=== PATIENT | female | born 1995 | race Hispanic/Latino ===

== ENCOUNTER → 2020-03-24 13:44 | Outpatient (CLI) | payer OTHER, SELFPAY ==
[2020-03-24 14:58] LABS: Alanine Aminotransferase 20 IU/L (<35); Albumin 4.6 g/dL (3.5-5.0); Albumin Globulin Ratio 1.6 (1.0-2.8); Alkaline Phosphatase 77 U/L (38-126); Aspartate Aminotransferase 29 IU/L (14-36); BUN Creatinine Ratio 16.4 (6-22); Bilirubin Total 0.5 mg/dL (0.2-1.3); Blood Urea Nitrogen 11 mg/dL (7-17); Calcium 9.9 mg/dL (8.4-10.2); Carbon Dioxide 28 mmol/L (22-32); Chloride 102 mmol/L (98-107); Estimated Glomerular Filt Rate > 60.0 mL/min (>60); Globulin 2.9 g/dL (1.7-4.1); Glucose 116 mg/dL (70-100); HEMOLYSIS < 15 (0-50); Potassium 4.3 mmol/L (3.4-5.1); Sodium 138 mmol/L (137-145); Total Protein 7.5 g/dL (6.3-8.2)
== END ==
PROVIDERS: PCP Registered Nurse; Referring Provider Registered Nurse; Visit Provider Registered Nurse
DX: B37.2 Candidiasis of skin and nail (principal)
CPT/HCPCS: 36415; 80053

== ENCOUNTER → 2020-12-21 15:56 | Outpatient (CLI) | payer OTHER, SELFPAY | PROVIDERS: PCP Registered Nurse; Referring Provider Registered Nurse; Visit Provider Registered Nurse | DX: M25.551 Pain in right hip (principal); M25.552 Pain in left hip; Z53.9 Procedure and treatment not carried out, unspecified reason ==

== ENCOUNTER → 2021-01-30 16:29 | Outpatient (CLI) | payer OTHER, SELFPAY ==
[2021-01-30 17:20] LABS: Add Manual Diff / Slide Review NO; Basophils Absolute Auto 0 /uL (0-100); Basophils Percent Auto 0.4 % (0-2); Eosinophils Absolute Auto 100 /uL (0-450); Eosinophils Percent Auto 0.8 % (2-4); Hematocrit 36.4 % (36-46); Hemoglobin 11.9 g/dL (12.0-16.0); Lymphocytes Absolute Auto 3100 /uL (1100-4500); Lymphocytes Percent Auto 24.8 % (25-40); Mean Corpuscular HGB Conc 32.8 % (30-36); Mean Corpuscular Hemoglobin 29.2 PG (26-34); Monocytes Absolute Auto 700 /uL (0-900); Monocytes Percent Auto 5.3 % (3-14); Neutrophils Absolute Auto 8600 /uL (1500-7000); Neutrophils Percent Auto 68.7 % (50-75); Platelet Count 319 X10^3/uL (150-400); Red Blood Cell Count 4.09 X10^6/uL (4.0-5.2); Red Cell Distribution Width 14.3 % (11.6-14.8); White Blood Cell Count 12.5 X10^3/uL (4.5-11.0)
[2021-01-30 18:16] LABS: Appearance Urine UA CLEAR; Bilirubin Urine UA NEGATIVE (NEGATIVE); Color Urine UA YELLOW; Glucose Urine UA NEGATIVE (Negative); Ketones Urine UA NEGATIVE (NEGATIVE); Leukocyte Esterase Urine UA NEGATIVE (NEGATIVE); Nitrite Urine UA NEGATIVE (Negative); Occult Blood Urine UA TRACE-INTACT (Negative); Protein Urine UA NEGATIVE (Negative); Urobilinogen Urine UA 0.2 E.U./dL (0.2)
[2021-01-30 18:20] LABS: pH Urine UA 6.5 (4.5-8.0)
[2021-01-30 18:33] LABS: Free T4, Direct Thyroxine 0.89 ng/dL (0.78-2.19)
[2021-01-30 18:47] LABS: Thyroid Stimulating Hormone 1.75 uIU/mL (0.47-4.68)
[2021-01-30 19:29] LABS: Hepatitis B Surface Antigen NEGATIVE s/c (NEGATIVE); Rubella Antibody IgG 1.3 IU/mL (>15)
[2021-01-30 19:52] LABS: HIV 1 & 2 Ab/Ag 4th Gen Combo NEGATIVE (NEGATIVE); Hep C Virus Ab w/Reflex Quant NEGATIVE s/c (NEGATIVE)
[2021-01-31 08:42] LABS: RPR Screen Non Reactive (Non Reactive)
[2021-01-31 12:42] LABS: Varicella IgG Antibody 741 index (Immune >165)
== END ==
PROVIDERS: PCP Registered Nurse; Referring Provider Family Medicine; Visit Provider Family Medicine
DX: Z34.01 Encounter for supervision of normal first pregnancy, first trimester (principal)
CPT/HCPCS: 36415; 80055; 81003; 84439; 84443; 86787; 86803; 86850; 86900; 86901; 87086; 87389

== ENCOUNTER → 2021-02-20 07:50 | Outpatient (CLI) | payer OTHER, SELFPAY ==
--- NOTE | 2021-02-20 07:51 | DI.ECHO.S_ITS ---
[facility]---------+ [facility] +---------+ : : [address] : : : : [place] : : : : [id number] : : : : Phone: [phone]---------+ Echocardiogram Report + + :Name: JOSIE CAMPBELL Study Date: 02/20/2021 Height: 64 in : :[facility] ReadingLocation: Weight: 190 lb : : Gender: Female BSA: 1.9 m2 : :: 1995 Age: 25 yrs BP: 112/74 mmHg: :Reason For Study: POSSIBLE HISTORY OF MITRAL VALVE PROLAPSE : :AND PULMONARY HYPERTENSION : :Ordering Physician: KIANNA, : :FARIDA Performed By: Carlita Sandhu : :Referring: FARIDA HUTCHISON : + + Interpretation Summary The ejection fraction is estimated to be 55-60%. There is trace tricuspid regurgitation. Pulmonary artery pressures cannot be estimated because of the lack of a measurable TR jet velocity but the IVC suggests a CVP of around 3 mmHg. There is no significant valvular heart disease. Procedure: A two-dimensional transthoracic echocardiogram with color flow and Doppler was performed. The study quality was technically adequate. There is no prior echocardiogram noted for this patient. The patient was in sinus rhythm with heart rates between 59-78 bpm during the exam. Left Ventricle: The left ventricle is normal in size and wall thickness. The ejection fraction is estimated to be 55-60%. There are no obvious focal wall motion abnormalities noted but poor endocardial definition reduces the sensitivity for the detection of such. Right Ventricle: The right ventricle is normal in size and function. Atria: The left atrium is mildly dilated. Right atrial size is normal. There is no Doppler evidence for an interatrial shunt. Mitral Valve: The mitral valve is normal in structure and function. There is no evidence of mitral valve prolapse. There is trace mitral regurgitation. Aortic Valve: The aortic valve opens well. There is no aortic valve stenosis. No aortic regurgitation is present. Tricuspid Valve: The tricuspid valve is normal in structure and function. There is trace tricuspid regurgitation. Pulmonary artery pressures cannot be estimated because of the lack of a measurable TR jet velocity but the IVC suggests a CVP of around 3 mmHg. Pulmonic Valve: The pulmonic valve leaflets are thin and pliable; valve motion is normal. There is trace pulmonic regurgitation. Great Vessels: The aortic root is normal size. The dimensions of the ascending aorta are normal. The IVC is of normal diameter and collapses greater than 50% with a sniff. This suggests a low right atrial pressure of 3 mm Hg. Pericardium/ Pleura There is no pericardial effusion. There is no pleural effusion. MMode/2D Measurements & Calculations LVIDd: 4.8 cm LVOT diam: 2.1 cm LVIDs: 2.9 cm Ao root diam: 2.4 cm FS: 39.6 % asc Aorta Diam: 2.3 cm EPSS: 0.23 cm Ao Arch Diam (Prox Trans): 2.4 cm IVSd: 0.76 cm LVPWd: 0.72 cm LV mae. diameter/BSA (cm/m^2): 2.5 LV sys. diameter/BSA (cm/m^2): 1.5 LA A2 area: 21.0 cm2 RA long axis: 4.9 cm LA A4 area: 21.1 cm2 RA area: 16.1 cm2 LA length (vol): 5.5 cm RA vol: 44.7 ml LA vol: 68.5 ml RA : 23.4 ml/m2 LA vol index: 35.8 ml/m2 IVC diam: 1.6 cm RVD1 (basal): 3.9 cm TAPSE: 2.7 cm Doppler Measurements & Calculations Ao V2 max: 157.5 cm/sec LVOT Max J Luis: 106.8 cm/sec Ao V2 mean: 109.9 cm/sec LV V1 max P.6 mmHg Ao max P.9 mmHg LV V1 VTI: 21.4 cm Ao mean P.4 mmHg MAY(I,D): 2.2 cm2 Ao V2 VTI: 33.1 cm MAY(V,D): 2.3 cm2 sev ratio: 0.65 MAY indexed to BSA (cm^2/m^2): 1.2 MV E max j luis: 91.7 cm/sec PA V2 max: 115.1 cm/sec MV A max j luis: 60.1 cm/sec PA V2 mean: 83.7 cm/sec MV E/A: 1.5 PA mean P.1 mmHg Med Peak E' J Luis: 12.5 cm/sec PA pr(Accel): 32.8 mmHg E/E' med: 7.3 Lat Peak E' J Luis: 16.1 cm/sec E/E' lat: 5.7 E/e' average: 6.5 MV dec time: 0.22 sec [facility] 72.8 ml Reading Physician:03:45 PM
== END ==
PROVIDERS: PCP Registered Nurse; Referring Provider Family Medicine; Visit Provider Family Medicine
DX: I34.1 Nonrheumatic mitral (valve) prolapse (principal); I27.20 Pulmonary hypertension, unspecified
CPT/HCPCS: 93306

== ENCOUNTER → 2021-04-04 11:44 | Outpatient (CLI) | payer OTHER, SELFPAY ==
[2021-04-06 20:07] LABS: AFP, Serum 57.1 ng/mL (.); Estriol, Free 1.46 ng/mL (.); Inhibin A, Dimeric 229.59 pg/mL (.); Inhibin A, MoM 1.75 (.); Maternal Ethnicity Other (.); Maternal Weight 202 lbs (.); Number of Fetuses No (.); OSBR Risk 1 IN 2393 (.); Results Report (.); Test Results *Screen Negative* (.); hCG, MoM 0.94 (.); hCG, Serum 22023 mIU/mL (.)
== END ==
PROVIDERS: PCP Registered Nurse; Referring Provider Family Medicine; Visit Provider Family Medicine
DX: Z34.90 Encounter for supervision of normal pregnancy, unspecified, unspecified trimester (principal); Z3A.18 18 weeks gestation of pregnancy
CPT/HCPCS: 36415; 82105; 82677; 84702; 86336

== ENCOUNTER → 2021-04-20 11:50 | Outpatient (CLI) | payer OTHER, SELFPAY ==
--- NOTE | 2021-04-20 11:51 | DI.US.S_ITS ---
PROCEDURE: US OB >= 14 WEEKS FETUS INDICATIONS: ANATOMY OUTSIDE/PRIOR DATING DATA: First dating scan (date and location): 04/20/2021 . Estimated date of delivery (JOSE) from first dating scan: 08/31/2021 . TECHNIQUE: Real-time scanning was performed of the fetus, with image documentation and biometric measurements. Endovaginal scanning: No COMPARISON: None. FINDINGS: General: A single living intrauterine gestation is present. Presentation: Vertex. Placenta: Placental position is right fundal , without previa. Amniotic fluid index: 15.3 cm, normal range is 5-24 cm. heart rate: 141 beats per minute. Maternal cervical canal: 3.5 cm long. Normal lower limit is 2.5 cm. biometrics: Biparietal diameter: 20 weeks 6 days Head circumference: 20 weeks 2 days Abdominal circumference: 20 weeks 5 days Femur length: 21 weeks 6 days Estimated gestational age from initial scan: not applicable. Composite gestational age from present scan: 21 weeks Estimated weight and percentile: N/a Measurement variability for biometric dating: +/- 7 days from 14 weeks to 15 weeks 6 days gestation, +/- 10 days from 16 weeks to 21 weeks 6 days gestation, +/- 2 weeks from 22 weeks to 27 weeks 6 days gestation, +/- 3 weeks for 28 weeks gestation or later. weight reference: 4500 g or EFW >90/95% is considered macrosomia or large for gestational age. EFW <10% is small for gestational age. EFW 5% or less is considered intra-uterine growth restriction. Anatomic survey: Neuro: Ventricles are non-dilated at less than 10 mm. Cisterna magna is normal at 3-11 mm. Cerebellum is normal in size and morphology. Nuchal skin fold: Normal at less than 6 mm between 14-21 weeks gestational age. Face: Nose and lips, facial profile are normal. Spine: No evidence for spina bifida. Heart: 4-chambered heart is present, with normal ventricular outflow tracts. Diaphragm: Diaphragm is intact. Stomach: Left-sided stomach is present. Kidneys: No hydronephrosis. Normal is less than 5 mm in 2nd trimester, less than 7 mm in 3rd trimester. Cord: 3-vessel cord has orthotopic insertion. Bladder: Normal in size. Extremities: All 4 extremities identified. IMPRESSION: 1. 21 week 0 day single living IUP. 2. Normal anatomic survey. Dictated by: Felix PARHAM Interpreted: Baldev Valverde MD on 04/20/2021 at 13:11 Transcribed by: ESTEBAN on 04/20/2021 at 13:21 Approved by: Baldev Valverde M.D. on 04/20/2021 at 15:11
== END ==
PROVIDERS: PCP Registered Nurse; Referring Provider Family Medicine; Visit Provider Family Medicine
DX: Z36.89 Encounter for other specified antenatal screening (principal); Z3A.21 21 weeks gestation of pregnancy
CPT/HCPCS: 76811

== ENCOUNTER → 2021-06-08 08:12 | Outpatient (CLI) | payer OTHER, SELFPAY ==
[2021-06-08 10:03] LABS: Add Manual Diff / Slide Review NO; Basophils Absolute Auto 0 /uL (0-100); Basophils Percent Auto 0.2 % (0-2); Eosinophils Absolute Auto 100 /uL (0-450); Eosinophils Percent Auto 0.5 % (2-4); Hematocrit 35.2 % (36-46); Hemoglobin 11.5 g/dL (12.0-16.0); Lymphocytes Absolute Auto 2100 /uL (1100-4500); Lymphocytes Percent Auto 17.1 % (25-40); Mean Corpuscular HGB Conc 32.8 % (30-36); Mean Corpuscular Hemoglobin 29.6 PG (26-34); Mean Corpuscular Volume 90.2 fL (80-100); Monocytes Absolute Auto 500 /uL (0-900); Neutrophils Absolute Auto 9400 /uL (1500-7000); Neutrophils Percent Auto 78.2 % (50-75); Platelet Count 348 X10^3/uL (150-400); Red Cell Distribution Width 13.8 % (11.6-14.8); White Blood Cell Count 12.1 X10^3/uL (4.5-11.0)
[2021-06-08 10:21] LABS: GTT (PREG) 1 Hour PP 50gm Dose 127 mg/dL (76-139)
== END ==
PROVIDERS: PCP Registered Nurse; Referring Provider Family Medicine; Visit Provider Family Medicine
DX: Z34.90 Encounter for supervision of normal pregnancy, unspecified, unspecified trimester (principal)
CPT/HCPCS: 36415; 82950; 85025

== ENCOUNTER → 2021-06-29 16:19 | Outpatient (CLI) | payer OTHER, SELFPAY ==
[2021-06-29 17:04] LABS: COVID19 -Nasal RAPID Negative (Negative)
== END ==
PROVIDERS: PCP Registered Nurse; Visit Provider Physician Assistant
DX: Z20.822 Contact with and (suspected) exposure to COVID-19 (principal)
CPT/HCPCS: 87635

== ENCOUNTER → 2021-07-10 17:12 | Outpatient (CLI) | payer OTHER, SELFPAY ==
[2021-07-10 18:12] LABS: Appearance Urine UA CLEAR; Bilirubin Urine UA NEGATIVE (NEGATIVE); Color Urine UA YELLOW; Glucose Urine UA NEGATIVE (Negative); Ketones Urine UA NEGATIVE (NEGATIVE); Leukocyte Esterase Urine UA TRACE (NEGATIVE); Nitrite Urine UA NEGATIVE (Negative); Occult Blood Urine UA NEGATIVE (Negative); Protein Urine UA NEGATIVE (Negative); Specific Gravity Urine UA <=1.005 (1.000-1.035); Urobilinogen Urine UA 0.2 E.U./dL (0.2)
[2021-07-10 18:25] LABS: Bacteria Urine Many (>30); Culture Indicated Urine Specimen Cultured; RBC Urine 0-1/HPF (0-5/HPF); Squamous Epithelial Cell Urine 1-5 /HPF (0-5/HPF); WBC Urine 5-10/HPF (0-5/HPF)
== END ==
PROVIDERS: PCP Registered Nurse; Referring Provider Family Medicine; Visit Provider Family Medicine
DX: Z34.90 Encounter for supervision of normal pregnancy, unspecified, unspecified trimester (principal); R82.998 Other abnormal findings in urine
CPT/HCPCS: 81001; 87086

== ENCOUNTER → 2021-07-12 15:11 | Outpatient (CLI) | payer OTHER, SELFPAY ==
[2021-07-12 15:57] LABS: Alanine Aminotransferase 86 IU/L (<35); Albumin 3.6 g/dL (3.5-5.0); Albumin Globulin Ratio 1.2 (1.0-2.8); Alkaline Phosphatase 256 U/L (38-126); Aspartate Aminotransferase 59 IU/L (14-36); BUN Creatinine Ratio 12.2 (6-22); Bilirubin Total 0.5 mg/dL (0.2-1.3); Blood Urea Nitrogen 6 mg/dL (7-17); Calcium 9.6 mg/dL (8.4-10.2); Carbon Dioxide 25 mmol/L (22-32); Chloride 103 mmol/L (98-107); Estimated Glomerular Filt Rate > 60.0 mL/min (>60); Glucose 84 mg/dL (70-100); HEMOLYSIS < 15 (0-50); Sodium 137 mmol/L (137-145); Total Protein 6.6 g/dL (6.3-8.2)
[2021-07-13 09:08] LABS: Bile Acids 48.1 umol/L (0.0-10.0)
== END ==
PROVIDERS: PCP Registered Nurse; Referring Provider Family Medicine; Visit Provider Family Medicine
DX: Z34.90 Encounter for supervision of normal pregnancy, unspecified, unspecified trimester (principal); L29.9 Pruritus, unspecified
CPT/HCPCS: 36415; 80053; 82239

== ENCOUNTER 2021-07-16 14:24 | Outpatient (CLI) | payer OTHER, SELFPAY ==
--- NOTE | 2021-07-16 14:44 | DI.US.S_ITS ---
PROCEDURE: US OB LIMITED INDICATIONS: GROWTH SCAN, TITI, BPP FOR CHOLESTASIS OF OUTSIDE/PRIOR DATING DATA: Last menstrual period (LMP): Not available. LMP-based estimated date of delivery (JOSE): Not available. First dating scan (date and location): 04/30/2021. Estimated date of delivery (JOSE) from first dating scan: 08/31/2021. TECHNIQUE: Real-time scanning was performed of the fetus, with image documentation and biometric measurements. Biophysical profile was also obtained. Endovaginal scanning: Not performed COMPARISON: [facility], OB >= 14 WEEKS FETUS, 04/20/2021, 12:18. FINDINGS: General: A single living intrauterine gestation is present. Presentation: Cephalic. Placenta: Placental position is right fundal , without previa. Amniotic fluid index: 9.2 cm, normal range is 5-24 cm; largest pocket 3.6 cm. heart rate: 143 beats per minute. Maternal cervical canal: 3.9 cm long. Normal lower limit is 2.5 cm. biometrics: Biparietal diameter: 34 weeks 1 day Head circumference: 33 weeks 6 days Abdominal circumference: 32 weeks 4 days Femur length: 33 weeks 0 day Estimated gestational age from initial scan: 33 weeks 3 days. Composite gestational age from present scan: 33 weeks 3 days Estimated weight and percentile: 2089 gm; 28% for gestation age Measurement variability for biometric dating: +/- 7 days from 14 weeks to 15 weeks 6 days gestation, +/- 10 days from 16 weeks to 21 weeks 6 days gestation, +/- 2 weeks from 22 weeks to 27 weeks 6 days gestation, +/- 3 weeks for 28 weeks gestation or later. weight reference: 4500 g or EFW >90/95% is considered macrosomia or large for gestational age. EFW <10% is small for gestational age. EFW 5% or less is considered intra-uterine growth restriction. Biophysical profile: Tone: 2 points. Movement: 2 points. Respiration: 2 points. Largest pocket of fluid: 2 points. Umbilical artery Doppler: Not performed IMPRESSION: 1. A single living intrauterine gestation with appropriate interval growth. weight at the 28th percentile. 2. Normal biophysical profile (8 out of 8). 3. TITI 9.2 cm. Dictated by: Laith Hewitt M.D. on 07/16/2021 at 16:27 Approved by: Laith Hewitt M.D. on 07/16/2021 at 16:31
--- NOTE | 2021-07-16 15:16 | P.TNLD_ITS ---
Visit Information Visit Information Date of evaluation: 07/16/21 Primary OB Provider: Belén Love Reason for Evaluation: Yes non-stress test non-stress test reason: other Comments/Additional reasons for admission: 26yo at 32w4d here for NST due to cholestasis of . Pt reports having a very itchy abdomen, hands, and feet for the past approximately week. Bile acids and liver enzymes are elevated. She is feeling her baby move regularly. [facility] Medical History (Updated 07/16/21 @ 15:25 by Belén Love MD) Dermatitis (~08/2019) Eczema (~08/2019) Left hip pain (~2004) Left wrist fracture (~2010) Mitral valve prolapse (~2011) Pulmonary hypertension (~2011) Right hip pain (~2004) Scoliosis (~2008) Surgical History (Updated 01/25/21 @ 15:38 by Margie Cornejo RN) History of tonsillectomy and adenoidectomy (~2002) Family History (Updated 01/25/21 @ 15:54 by Margie Cornejo RN) Mother Cellulitis and abscess of leg Father Sleep apnea Hearing loss Asthma Grandmother Diabetes mellitus Cirrhosis of liver Grandfather Family estrangement Grandmother No problems noted. Grandfather Diabetes mellitus Social History marital status: number of children: 0 household members: spouse and family (Her Brother, his two kids & her parents are moving in with her next week. ) lives independently: Yes caregiver/support person: No housing: house pets and animals: Yes (2 dogs: safe & aware. 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.) current occupational exposures/hazards: No raphael/catholic: Baptist special raphael needs: No seatbelt use: always working smoke detector in home: Yes fire extinguisher in home: No carbon monox detector in home: Yes firearms in home: Yes firearms unloaded and locked: Yes do you feel safe at home: Yes Smoking Status: Never smoker second hand exposure: No alcohol intake: former (1 drink per month.) substance use type: does not use during the past year weight has: remained stable well-balanced diet: daily or most days daily servings fruits/ve-4 caffeine: No Type(s) of exercise: regular exercise (Sometimes Nuria classes. ) and running (Total 9 miles a week. Did half-marathon recently.) frequency: 3-4 times per week Evaluation Evaluation Baseline heart rate: 140 Variability: Moderate (11-25) monitor accelerations: Present Monitor Decelerations: Absent Category of Tracing: Reactive Diagnosis, Plan/Disposition Final Diagnosis (1) Cholestasis during in third trimester: Status: Acute Plan/Disposition Plan: 26yo at 32w4d here for NST due to cholestasis of . BPP 8/8 with TITI 9.2. Appropriate growth on u/s as well. NST reactive. Continue twice weekly NST with weekly BPP/TITI. MFM referral placed today. OB Disposition: home
== END 2021-07-16 15:30 | disposition home or self-care (01) ==
LOC: LABOR 15:00 → OB 07-17 11:17
PROVIDERS: PCP Registered Nurse; Referring Provider Family Medicine; Visit Provider Family Medicine
DX: O26.613 Liver and biliary tract disorders in pregnancy, third trimester (principal); K83.1 Obstruction of bile duct; Z3A.32 32 weeks gestation of pregnancy
CPT/HCPCS: 59025; 76815; 76819; G0378; G0379

== ENCOUNTER 2021-07-20 14:54 | Outpatient (CLI) | payer OTHER, SELFPAY ==
--- NOTE | 2021-07-20 15:37 | P.TNLD_ITS ---
Visit Information Visit Information Date of evaluation: 07/20/21 Primary OB Provider: Belén Love Reason for Evaluation: Yes non-stress test non-stress test reason: other (cho lestasis of ) Comments/Additional reasons for admission: Pt is a 26yo at 33w1d here for NST due to cholestasis of . She is feeling her baby move regularly. She denies any vaginal bleeding, LOF, or contractions. [facility] Medical History (Updated 07/16/21 @ 15:25 by Belén Love MD) Dermatitis (~08/2019) Eczema (~08/2019) Left hip pain (~2004) Left wrist fracture (~2010) Mitral valve prolapse (~2011) Pulmonary hypertension (~2011) Right hip pain (~2004) Scoliosis (~2008) Surgical History (Updated 01/25/21 @ 15:38 by Margie Cornejo RN) History of tonsillectomy and adenoidectomy (~2002) Family History (Updated 01/25/21 @ 15:54 by Margie Cornejo RN) Mother Cellulitis and abscess of leg Father Sleep apnea Hearing loss Asthma Grandmother Diabetes mellitus Cirrhosis of liver Grandfather Family estrangement Grandmother No problems noted. Grandfather Diabetes mellitus Social History marital status: number of children: 0 household members: spouse and family (Her Brother, his two kids & her parents are moving in with her next week. ) lives independently: Yes caregiver/support person: No housing: house pets and animals: Yes (2 dogs: safe & aware. 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.) current occupational exposures/hazards: No raphael/catholic: [employer] special raphael needs: No seatbelt use: always working smoke detector in home: Yes fire extinguisher in home: No carbon monox detector in home: Yes firearms in home: Yes firearms unloaded and locked: Yes do you feel safe at home: Yes Smoking Status: Never smoker second hand exposure: No alcohol intake: former (1 drink per month.) substance use type: does not use during the past year weight has: remained stable well-balanced diet: daily or most days daily servings fruits/ve-4 caffeine: No Type(s) of exercise: regular exercise (Sometimes Nuria classes. ) and running ( Total 9 miles a week. Did half-marathon recently.) frequency: 3-4 times per week Objective Labs Result Diagrams: 07/20/21 15:22 Evaluation Evaluation Baseline heart rate: 140 Variability: Moderate (11-25) monitor accelerations: Present Monitor Decelerations: Absent Category of Tracing: Reactive Diagnosis, Plan/Disposition Final Diagnosis (1) Cholestasis during in third trimester: Status: Acute Plan/Disposition Plan: Pt is a 26yo at 33w1d here for NST due to cholestasis of . NST reactive. Labs drawn today. Continue twice weekly NST with weekly TITI. Safe to d/c home. OB Disposition: home
[2021-07-20 15:39] LABS: Alanine Aminotransferase 68 IU/L (<35); Albumin 3.5 g/dL (3.5-5.0); Albumin Globulin Ratio 1.1 (1.0-2.8); Alkaline Phosphatase 246 U/L (38-126); Aspartate Aminotransferase 47 IU/L (14-36); BUN Creatinine Ratio 15.2 (6-22); Bilirubin Total 0.4 mg/dL (0.2-1.3); Blood Urea Nitrogen 7 mg/dL (7-17); Calcium 8.8 mg/dL (8.4-10.2); Carbon Dioxide 24 mmol/L (22-32); Chloride 103 mmol/L (98-107); Estimated Glomerular Filt Rate > 60.0 mL/min (>60); Globulin 3.3 g/dL (1.7-4.1); Glucose 114 mg/dL (70-100); HEMOLYSIS < 15 (0-50); Potassium 3.9 mmol/L (3.4-5.1); Sodium 134 mmol/L (137-145); Total Protein 6.8 g/dL (6.3-8.2)
[2021-07-21 12:14] LABS: Bile Acids 9.6 umol/L (0.0-10.0)
== END 2021-07-20 15:42 | disposition home or self-care (01) ==
LOC: OB 07-25 07:10
PROVIDERS: PCP Registered Nurse; Referring Provider Family Medicine; Visit Provider Family Medicine
DX: O26.613 Liver and biliary tract disorders in pregnancy, third trimester (principal); K83.1 Obstruction of bile duct; Z3A.33 33 weeks gestation of pregnancy
CPT/HCPCS: 36415; 59025; 80053; 82239; G0378; G0379

== ENCOUNTER 2021-07-24 13:22 | Outpatient (CLI) | payer OTHER, SELFPAY ==
--- NOTE | 2021-07-24 14:22 | P.TNLD_ITS ---
Visit Information Visit Information Date of evaluation: 07/24/21 Primary OB Provider: Belén Love Reason for Evaluation: Yes non-stress test non-stress test reason: other Comments/Additional reasons for admission: 26yo at 33w6d here for NST due to cholestasis of . Pt is feeling her baby move regularly. No LOF, contractions, or vaginal bleeding. [facility] Medical History (Updated 07/16/21 @ 15:25 by Belén Love MD) Dermatitis (~08/2019) Eczema (~08/2019) Left hip pain (~2004) Left wrist fracture (~2010) Mitral valve prolapse (~2011) Pulmonary hypertension (~2011) Right hip pain (~2004) Scoliosis (~2008) Surgical History (Updated 01/25/21 @ 15:38 by Margie Cornejo RN) History of tonsillectomy and adenoidectomy (~2002) Family History (Updated 01/25/21 @ 15:54 by Margie Cornejo RN) Mother Cellulitis and abscess of leg Father Sleep apnea Hearing loss Asthma Grandmother Diabetes mellitus Cirrhosis of liver Grandfather Family estrangement Grandmother No problems noted. Grandfather Diabetes mellitus Social History marital status: number of children: 0 household members: spouse and family (Her Brother, his two kids & her parents are moving in with her next week. ) lives independently: Yes caregiver/support person: No housing: house pets and animals: Yes (2 dogs: safe & aware. 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.) current occupational exposures/hazards: No raphael/zoroastrianism: Yazdanism special raphael needs: No seatbelt use: always working smoke detector in home: Yes fire extinguisher in home: No carbon monox detector in home: Yes firearms in home: Yes firearms unloaded and locked: Yes do you feel safe at home: Yes Smoking Status: Never smoker second hand exposure: No alcohol intake: former (1 drink per month.) substance use type: does not use during the past year weight has: remained stable well-balanced diet: daily or most days daily servings fruits/ve-4 caffeine: No Type(s) of exercise: regular exercise (Sometimes Nuria classes. ) and running (Total 9 miles a week. Did half-marathon recently.) frequency: 3-4 times per week Evaluation Evaluation Baseline heart rate: 145 Variability: Moderate (11-25) monitor accelerations: Present Monitor Decelerations: Absent Category of Tracing: Reactive Diagnosis, Plan/Disposition Final Diagnosis (1) Cholestasis during in third trimester: Status: Acute Plan/Disposition Plan: 26yo at 33w6d here for NST due to cholestasis of . NST reactive. Pt with u/s with MFM yesterday. Awaiting records for final recommendations. Continue twice weekly NST with weekly TITI for now. Stable for d/c home. OB Disposition: home
== END 2021-07-24 14:15 | disposition home or self-care (01) ==
LOC: OB 07-25 07:12
PROVIDERS: PCP Registered Nurse; Referring Provider Family Medicine; Visit Provider Family Medicine
DX: O26.613 Liver and biliary tract disorders in pregnancy, third trimester (principal); K83.1 Obstruction of bile duct; Z3A.33 33 weeks gestation of pregnancy
CPT/HCPCS: 59025; G0378; G0379

== ENCOUNTER 2021-07-27 15:01 | Outpatient (CLI) | payer OTHER, SELFPAY ==
--- NOTE | 2021-07-27 15:15 | PM.OBTRLD ---
Visit Information Visit Information Date of evaluation: 07/27/21 Primary OB Provider: Belén Love Reason for Evaluation: Yes non-stress test Comments/Additional reasons for admission: 26yo at 34w1d here for NST due to cholestasis of .? Pt is feeling her baby move regularly.? No LOF, contractions, or vaginal bleeding. [facility] Medical History (Updated 07/16/21 @ 15:25 by Belén Love MD) Dermatitis (~08/2019) Eczema (~08/2019) Left hip pain (~2004) Left wrist fracture (~2010) Mitral valve prolapse (~2011) Pulmonary hypertension (~2011) Right hip pain (~2004) Scoliosis (~2008) Surgical History (Updated 01/25/21 @ 15:38 by Margie Cornejo RN) History of tonsillectomy and adenoidectomy (~2002) Family History (Updated 01/25/21 @ 15:54 by Margie Cornejo RN) Mother Cellulitis and abscess of leg Father Sleep apnea Hearing loss Asthma Grandmother Diabetes mellitus Cirrhosis of liver Grandfather Family estrangement Grandmother No problems noted. Grandfather Diabetes mellitus Social History marital status: number of children: 0 household members: spouse and family (Her Brother, his two kids & her parents are moving in with her next week. ) lives independently: Yes caregiver/support person: No housing: house pets and animals: Yes (2 dogs: safe & aware. 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.) current occupational exposures/hazards: No raphael/buddhist: Episcopal special raphael needs: No seatbelt use: always working smoke detector in home: Yes fire extinguisher in home: No carbon monox detector in home: Yes firearms in home: Yes firearms unloaded and locked: Yes do you feel safe at home: Yes Smoking Status: Never smoker second hand exposure: No alcohol intake: former (1 drink per month.) substance use type: does not use during the past year weight has: remained stable well-balanced diet: daily or most days daily servings fruits/ve-4 caffeine: No Type(s) of exercise: regular exercise (Sometimes Nuria classes. ) and running (Total 9 miles a week. Did half-marathon recently.) frequency: 3-4 times per week Evaluation Evaluation Baseline heart rate: 130 Variability: Moderate (11-25) monitor accelerations: Present Monitor Decelerations: Absent Category of Tracing: Reactive Diagnosis, Plan/Disposition Final Diagnosis (1) Cholestasis during in third trimester: Status: Acute Plan/Disposition Plan: 26yo at 34w1d here for NST due to cholestasis of . NST reactive.? Continue twice weekly NST with weekly TITI for now.? Labs completed today, pending at discharge. Stable for d/c home. OB Disposition: home
[2021-07-27 16:37] LABS: Alanine Aminotransferase 84 IU/L (<35); Albumin 3.6 g/dL (3.5-5.0); Albumin Globulin Ratio 1.1 (1.0-2.8); Alkaline Phosphatase 253 U/L (38-126); Aspartate Aminotransferase 59 IU/L (14-36); BUN Creatinine Ratio 14.5 (6-22); Bilirubin Total 0.4 mg/dL (0.2-1.3); Blood Urea Nitrogen 8 mg/dL (7-17); Carbon Dioxide 23 mmol/L (22-32); Chloride 104 mmol/L (98-107); Estimated Glomerular Filt Rate > 60.0 mL/min (>60); Globulin 3.3 g/dL (1.7-4.1); Glucose 124 mg/dL (70-100); HEMOLYSIS < 15 (0-50); Sodium 135 mmol/L (137-145); Total Protein 6.9 g/dL (6.3-8.2)
[2021-07-28 16:28] LABS: Bile Acids 11.8 umol/L (0.0-10.0)
== END 2021-07-27 15:54 | disposition home or self-care (01) ==
LOC: LABOR 16:04 → OB 07-31 03:47
PROVIDERS: PCP Registered Nurse; Referring Provider Family Medicine; Visit Provider Family Medicine
DX: O26.613 Liver and biliary tract disorders in pregnancy, third trimester (principal); K83.1 Obstruction of bile duct; Z3A.34 34 weeks gestation of pregnancy
CPT/HCPCS: 36415; 59025; 80053; 82239; G0378; G0379

== ENCOUNTER 2021-07-31 14:27 | Outpatient (CLI) | payer OTHER, SELFPAY ==
--- NOTE | 2021-07-31 14:53 | PC.NURSE ---
1350 to OR for procedure via bed, Patient alert and oriented x3.
--- NOTE | 2021-07-31 15:23 | PM.OBTRLD ---
Visit Information Visit Information Date of evaluation: 07/31/21 Primary OB Provider: Belén Love On-call OB Provider: Nicole Kinney Reason for Evaluation: Yes non-stress test Comments/Additional reasons for admission: Cholestasis of [facility] Medical History (Updated 07/31/21 @ 15:25 by Nicole Kinney MD) Dermatitis (~08/2019) Eczema (~08/2019) Left hip pain (~2004) Left wrist fracture (~2010) Mitral valve prolapse (~2011) Pulmonary hypertension (~2011) Right hip pain (~2004) Scoliosis (~2008) Surgical History (Updated 01/25/21 @ 15:38 by Margie Cornejo, RN) History of tonsillectomy and adenoidectomy (~2002) Family History (Updated 01/25/21 @ 15:54 by Margie Cornejo, RN) Mother Cellulitis and abscess of leg Father Sleep apnea Hearing loss Asthma Grandmother Diabetes mellitus Cirrhosis of liver Grandfather Family estrangement Grandmother No problems noted. Grandfather Diabetes mellitus Social History marital status: number of children: 0 household members: spouse and family (Her Brother, his two kids & her parents are moving in with her next week. ) lives independently: Yes caregiver/support person: No housing: house pets and animals: Yes (2 dogs: safe & aware. 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 occupational exposures/hazards: No raphael/anglican: Scientologist special raphael needs: No seatbelt use: always working smoke detector in home: Yes fire extinguisher in home: No carbon monox detector in home: Yes firearms in home: Yes firearms unloaded and locked: Yes do you feel safe at home: Yes Smoking Status: Never smoker second hand exposure: No alcohol intake: former (1 drink per month.) substance use type: does not use during the past year weight has: remained stable well-balanced diet: daily or most days daily servings fruits/ve-4 caffeine: No Type(s) of exercise: regular exercise (Sometimes Nuria classes. ) and running (Total 9 miles a week. Did half-marathon recently.) frequency: 3-4 times per week Evaluation Evaluation Baseline heart rate: 125 Variability: Moderate (11-25) monitor accelerations: Present Monitor Decelerations: Absent Category of Tracing: Reactive Status: Category l Diagnosis, Plan/Disposition Final Diagnosis (1) Cholestasis during in third trimester: Status: Acute (2) 34 weeks gestation of : Status: Acute Plan/Disposition Plan: Reactive nonstress test. Continue the testing recommended by MFM OB Disposition: home
== END 2021-07-31 15:26 | disposition home or self-care (01) ==
LOC: LABOR 15:25 → OB 08-01 07:29
PROVIDERS: PCP Registered Nurse; Referring Provider Family Medicine; Visit Provider Family Medicine
DX: O26.613 Liver and biliary tract disorders in pregnancy, third trimester (principal); K83.1 Obstruction of bile duct; Z3A.34 34 weeks gestation of pregnancy
CPT/HCPCS: 59025; G0378; G0379

== ENCOUNTER 2021-08-03 14:55 | Outpatient (CLI) | payer OTHER, SELFPAY ==
--- NOTE | 2021-08-03 15:34 | P.TNLD_ITS ---
Visit Information Visit Information Date of evaluation: 08/03/21 Primary OB Provider: Belén Love Reason for Evaluation: Yes non-stress test Comments/Additional reasons for admission: * 26yo at 35w1d here for NST for cholestasis of . No LOF, vaginal bleeding, or contractions. Feeling the baby move regularly. [facility] Medical History (Updated 07/31/21 @ 15:25 by Nicole Kinney MD) Dermatitis (~08/2019) Eczema (~08/2019) Left hip pain (~2004) Left wrist fracture (~2010) Mitral valve prolapse (~2011) Pulmonary hypertension (~2011) Right hip pain (~2004) Scoliosis (~2008) Surgical History (Updated 01/25/21 @ 15:38 by Margie Cornejo RN) History of tonsillectomy and adenoidectomy (~2002) Family History (Updated 01/25/21 @ 15:54 by Margie Cornejo RN) Mother Cellulitis and abscess of leg Father Sleep apnea Hearing loss Asthma Grandmother Diabetes mellitus Cirrhosis of liver Grandfather Family estrangement Grandmother No problems noted. Grandfather Diabetes mellitus Social History marital status: number of children: 0 household members: spouse and family (Her Brother, his two kids & her parents are moving in with her next week. ) lives independently: Yes caregiver/support person: No housing: house pets and animals: Yes (2 dogs: safe & aware. 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.) current occupational exposures/hazards: No raphael/gnosticist: Temple special raphael needs: No seatbelt use: always working smoke detector in home: Yes fire extinguisher in home: No carbon monox detector in home: Yes firearms in home: Yes firearms unloaded and locked: Yes do you feel safe at home: Yes Smoking Status: Never smoker second hand exposure: No alcohol intake: former (1 drink per month.) substance use type: does not use during the past year weight has: remained stable well-balanced diet: daily or most days daily servings fruits/ve-4 caffeine: No Type(s) of exercise: regular exercise (Sometimes Nuria classes. ) and running (Total 9 miles a week. Did half-marathon recently.) frequency: 3-4 times per week Evaluation Evaluation Baseline heart rate: 130 Variability: Moderate (11-25) monitor accelerations: Present Monitor Decelerations: Absent Category of Tracing: Reactive Diagnosis, Plan/Disposition Final Diagnosis (1) Cholestasis during in third trimester: Status: Acute Plan/Disposition Plan: * 26yo at 35w1d here for NST for cholestasis of . NST reactive. Labs pending. Continue twice weekly testing. OB Disposition: home
== END 2021-08-03 15:40 | disposition home or self-care (01) ==
LOC: OB 08-06 11:15
PROVIDERS: PCP Registered Nurse; Referring Provider Family Medicine; Visit Provider Family Medicine
DX: O26.613 Liver and biliary tract disorders in pregnancy, third trimester (principal); K83.1 Obstruction of bile duct; Z3A.35 35 weeks gestation of pregnancy
CPT/HCPCS: 36415; 59025; 80053; 82239; G0378; G0379

== ENCOUNTER → 2021-08-03 15:44 | Outpatient (CLI) | payer OTHER, SELFPAY ==
[2021-08-03 20:39] LABS: Alanine Aminotransferase 41 IU/L (<35); Albumin 3.4 g/dL (3.5-5.0); Albumin Globulin Ratio 1.1 (1.0-2.8); Alkaline Phosphatase 313 U/L (38-126); Aspartate Aminotransferase 106 IU/L (14-36); BUN Creatinine Ratio 13.6 (6-22); Bilirubin Total 0.9 mg/dL (0.2-1.3); Blood Urea Nitrogen 6 mg/dL (7-17); Carbon Dioxide 20 mmol/L (22-32); Chloride 106 mmol/L (98-107); Estimated Glomerular Filt Rate > 60.0 mL/min (>60); Globulin 3.1 g/dL (1.7-4.1); Glucose 71 mg/dL (70-100); Potassium 4.2 mmol/L (3.4-5.1); Sodium 135 mmol/L (137-145); Total Protein 6.5 g/dL (6.3-8.2)
[2021-08-03 20:41] LABS: HEMOLYSIS 142 (0-50)
[2021-08-04 12:12] LABS: Bile Acids 13.2 umol/L (0.0-10.0)
== END ==
PROVIDERS: PCP Registered Nurse; Referring Provider Family Medicine; Visit Provider Family Medicine
DX: O26.613 Liver and biliary tract disorders in pregnancy, third trimester (principal); K83.1 Obstruction of bile duct
CPT/HCPCS: 36415; 80053; 82239

== ENCOUNTER 2021-08-07 08:57 | Outpatient (CLI) | payer OTHER, SELFPAY ==
--- NOTE | 2021-08-07 09:38 | P.TNLD_ITS ---
Visit Information Visit Information Date of evaluation: 08/07/21 Primary OB Provider: Belén Love Reason for Evaluation: Yes non-stress test Comments/Additional reasons for admission: 26yo at 35w5d here for NST for cholestasis of . No LOF, vaginal bleeding, contractions. She is feeling her baby move regularly. [facility] Medical History (Updated 08/07/21 @ 09:55 by Belén Love MD) Dermatitis (~08/2019) Eczema (~08/2019) Left hip pain (~2004) Left wrist fracture (~2010) Mitral valve prolapse (~2011) Pulmonary hypertension (~2011) Right hip pain (~2004) Scoliosis (~2008) Surgical History (Updated 01/25/21 @ 15:38 by Margie Cornejo, RN) History of tonsillectomy and adenoidectomy (~2002) Family History (Updated 01/25/21 @ 15:54 by Margie Cornejo RN) Mother Cellulitis and abscess of leg Father Sleep apnea Hearing loss Asthma Grandmother Diabetes mellitus Cirrhosis of liver Grandfather Family estrangement Grandmother No problems noted. Grandfather Diabetes mellitus Social History marital status: number of children: 0 household members: spouse and family (Her Brother, his two kids & her parents are moving in with her next week. ) lives independently: Yes caregiver/support person: No housing: house pets and animals: Yes (2 dogs: safe & aware. 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.) current occupational exposures/hazards: No raphael/episcopal: Mandaeism special raphael needs: No seatbelt use: always working smoke detector in home: Yes fire extinguisher in home: No carbon monox detector in home: Yes firearms in home: Yes firearms unloaded and locked: Yes do you feel safe at home: Yes Smoking Status: Never smoker second hand exposure: No alcohol intake: former (1 drink per month.) substance use type: does not use during the past year weight has: remained stable well-balanced diet: daily or most days daily servings fruits/ve-4 caffeine: No Type(s) of exercise: regular exercise (Sometimes Nuria classes. ) and running (Total 9 miles a week. Did half-marathon recently.) frequency: 3-4 times per week Evaluation Evaluation Baseline heart rate: 130 Variability: Moderate (11-25) monitor accelerations: Present Monitor Decelerations: Absent Category of Tracing: Reactive Diagnosis, Plan/Disposition Final Diagnosis (1) Cholestasis during in third trimester: Status: Acute Plan/Disposition Plan: 26yo at 35w5d here for NST for cholestasis of . NST reactive. Continue with twice weekly testing. OB Disposition: home
== END 2021-08-07 09:40 | disposition home or self-care (01) ==
LOC: LABOR 09:59 → OB 08-08 11:41
PROVIDERS: PCP Registered Nurse; Referring Provider Family Medicine; Visit Provider Family Medicine
DX: O26.613 Liver and biliary tract disorders in pregnancy, third trimester (principal); K83.1 Obstruction of bile duct; Z3A.35 35 weeks gestation of pregnancy; Z34.93 Encounter for supervision of normal pregnancy, unspecified, third trimester
CPT/HCPCS: 59025; 87653; G0378; G0379

== ENCOUNTER → 2021-08-07 09:47 | Outpatient (CLI) | payer OTHER, SELFPAY ==
[2021-08-08 07:52] LABS: Strep Grp B PCR POS for Grp B Strep
== END ==
PROVIDERS: PCP Registered Nurse; Referring Provider Family Medicine; Visit Provider Family Medicine
DX: Z34.93 Encounter for supervision of normal pregnancy, unspecified, third trimester (principal); Z3A.35 35 weeks gestation of pregnancy
CPT/HCPCS: 87653

== ENCOUNTER 2021-08-10 12:53 | Outpatient (CLI) | payer OTHER, SELFPAY ==
--- NOTE | 2021-08-10 13:23 | P.TNLD_ITS ---
Visit Information Visit Information Date of evaluation: 08/10/21 Primary OB Provider: Belén Love Reason for Evaluation: Yes non-stress test Comments/Additional reasons for admission: 26yo at 36w1d here for NST for cholestasis of . She is feeling her baby move regularly. No LOF, vaginal bleeding, contractions. She did r ecently test positive for COVID. [facility] Medical History (Updated 08/07/21 @ 09:55 by Belén Love MD) Dermatitis (~08/2019) Eczema (~08/2019) Left hip pain (~2004) Left wrist fracture (~2010) Mitral valve prolapse (~2011) Pulmonary hypertension (~2011) Right hip pain (~2004) Scoliosis (~2008) Surgical History (Updated 01/25/21 @ 15:38 by Margie Cornejo RN) History of tonsillectomy and adenoidectomy (~2002) Family History (Updated 01/25/21 @ 15:54 by Margie Cornejo RN) Mother Cellulitis and abscess of leg Father Sleep apnea Hearing loss Asthma Grandmother Diabetes mellitus Cirrhosis of liver Grandfather Family estrangement Grandmother No problems noted. Grandfather Diabetes mellitus Social History marital status: number of children: 0 household members: spouse and family (Her Brother, his two kids & her parents are moving in with her next week. ) lives independently: Yes caregiver/support person: No housing: house pets and animals: Yes (2 dogs: safe & aware. 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.) current occupational exposures/hazards: No raphael/latter-day: Confucianism special raphael needs: No seatbelt use: always working smoke detector in home: Yes fire extinguisher in home: No carbon monox detector in home: Yes firearms in home: Yes firearms unloaded and locked: Yes do you feel safe at home: Yes Smoking Status: Never smoker second hand exposure: No alcohol intake: former (1 drink per month.) substance use type: does not use during the past year weight has: remained stable well-balanced diet: daily or most days daily servings fruits/ve-4 caffeine: No Type(s) of exercise: regular exercise (Sometimes Nuria classes. ) and running (Total 9 miles a week. Did half-marathon recently.) frequency: 3-4 times per week Objective Labs Result Diagrams: 08/10/21 13:34 08/10/21 13:34 Evaluation Evaluation Baseline heart rate: 140 Variability: Moderate (11-25) monitor accelerations: Present Monitor Decelerations: Absent Category of Tracing: Reactive Diagnosis, Plan/Disposition Final Diagnosis (1) Cholestasis during in third trimester: Status: Acute Plan/Disposition Plan: 26yo at 36w1d here for NST for cholestasis of . NST reactive. Continue twice weekly testing. OB Disposition: home
[2021-08-10 13:57] LABS: Add Manual Diff / Slide Review NO; Basophils Absolute Auto 0 /uL (0-100); Basophils Percent Auto 0.3 % (0-2); Eosinophils Absolute Auto 0 /uL (0-450); Eosinophils Percent Auto 0.2 % (2-4); Hemoglobin 12.1 g/dL (12.0-16.0); Lymphocytes Absolute Auto 900 /uL (1100-4500); Lymphocytes Percent Auto 13.2 % (25-40); Mean Corpuscular HGB Conc 33.7 % (30-36); Mean Corpuscular Hemoglobin 29.8 PG (26-34); Mean Corpuscular Volume 88.3 fL (80-100); Monocytes Absolute Auto 500 /uL (0-900); Monocytes Percent Auto 6.9 % (3-14); Neutrophils Absolute Auto 5300 /uL (1500-7000); Neutrophils Percent Auto 79.4 % (50-75); Platelet Count 278 X10^3/uL (150-400); Red Blood Cell Count 4.08 X10^6/uL (4.0-5.2); White Blood Cell Count 6.7 X10^3/uL (4.5-11.0)
[2021-08-10 14:11] LABS: Alanine Aminotransferase 87 IU/L (<35); Albumin 3.4 g/dL (3.5-5.0); Albumin Globulin Ratio 1.1 (1.0-2.8); Alkaline Phosphatase 228 U/L (38-126); Aspartate Aminotransferase 87 IU/L (14-36); BUN Creatinine Ratio 5.7 (6-22); Bilirubin Total 0.5 mg/dL (0.2-1.3); Blood Urea Nitrogen 3 mg/dL (7-17); Calcium 8.6 mg/dL (8.4-10.2); Carbon Dioxide 21 mmol/L (22-32); Chloride 103 mmol/L (98-107); Estimated Glomerular Filt Rate > 60.0 mL/min (>60); Globulin 3.1 g/dL (1.7-4.1); Glucose 85 mg/dL (70-100); HEMOLYSIS < 15 (0-50); Sodium 133 mmol/L (137-145); Total Protein 6.5 g/dL (6.3-8.2)
[2021-08-11 12:37] LABS: Bile Acids 10.1 umol/L (0.0-10.0)
== END 2021-08-10 13:45 | disposition home or self-care (01) ==
LOC: LABOR 13:17 → OB 08-15 13:41
PROVIDERS: PCP Registered Nurse; Referring Provider Family Medicine; Visit Provider Family Medicine
DX: O26.613 Liver and biliary tract disorders in pregnancy, third trimester (principal); K83.1 Obstruction of bile duct; Z3A.36 36 weeks gestation of pregnancy
CPT/HCPCS: 36415; 59025; 80053; 82239; 85025; G0378; G0379

== ENCOUNTER 2021-08-13 16:11 | Emergency (ER) | payer OTHER, SELFPAY ==
[2021-08-13 16:15] VITALS: BP 128/83; PULSE 115; RESP 22; TEMP 36.6; O2SAT 100
[2021-08-13] MEDS: ONDANSETRON 4 MG/2 ML INJ IV (16:42)
[2021-08-13] MEDS: SODIUM CHLORIDE 0.9% 1,000 ML 1000 ML IV (16:42)
[2021-08-13 17:02] LABS: Add Manual Diff / Slide Review NO; Basophils Absolute Auto 0 /uL (0-100); Basophils Percent Auto 0.4 % (0-2); Eosinophils Absolute Auto 0 /uL (0-450); Eosinophils Percent Auto 0.1 % (2-4); Lymphocytes Absolute Auto 1000 /uL (1100-4500); Lymphocytes Percent Auto 12.9 % (25-40); Mean Corpuscular HGB Conc 34.3 % (30-36); Mean Corpuscular Hemoglobin 29.9 PG (26-34); Mean Corpuscular Volume 87.2 fL (80-100); Monocytes Absolute Auto 400 /uL (0-900); Monocytes Percent Auto 4.9 % (3-14); Neutrophils Absolute Auto 6100 /uL (1500-7000); Neutrophils Percent Auto 81.7 % (50-75); Platelet Count 288 X10^3/uL (150-400); Red Blood Cell Count 4.36 X10^6/uL (4.0-5.2); Red Cell Distribution Width 14.2 % (11.6-14.8); White Blood Cell Count 7.4 X10^3/uL (4.5-11.0)
[2021-08-13 17:24] LABS: Alanine Aminotransferase 127 IU/L (<35); Albumin 3.8 g/dL (3.5-5.0); Albumin Globulin Ratio 1.1 (1.0-2.8); Alkaline Phosphatase 258 U/L (38-126); Aspartate Aminotransferase 125 IU/L (14-36); Bilirubin Total 0.9 mg/dL (0.2-1.3); Blood Urea Nitrogen 3 mg/dL (7-17); Calcium 8.9 mg/dL (8.4-10.2); Carbon Dioxide 21 mmol/L (22-32); Chloride 103 mmol/L (98-107); Estimated Glomerular Filt Rate > 60.0 mL/min (>60); Globulin 3.5 g/dL (1.7-4.1); Glucose 91 mg/dL (70-100); HEMOLYSIS < 15 (0-50); Potassium 3.8 mmol/L (3.4-5.1); Sodium 133 mmol/L (137-145); Total Protein 7.3 g/dL (6.3-8.2)
--- NOTE | 2021-08-13 18:24 | ED.NAVMDI ---
HPI - Nausea/Vomiting/Diarrhea General Chief complaint: Nausea/Vomiting/Diarrhea Stated complaint: COVID + AND KEEP FOOD DOWN Time Seen by Provider: 08/13/21 17:21 Source: patient Mode of arrival: Ambulatory History of Present Illness HPI Narrative: Patient here for nausea and vomiting. Unable to keep fluids down for the past 2 days. Patient is 36 weeks . Followed by OBGYN by IDALIA Melendrez. Is scheduled for induction is Friday. Patient has had laboratory studies in the past weeks for cholestasis. This is not new. Elevated liver enzymes today liver likely related to recent diagnosis of COVID. Started symptoms last Friday. Brother with COVID. Patient is not vaccinated. Denies any dyspnea but does have a cough. No unusual abdominal discomfort. Feeling much better after fluids and Zofran here. In no distress. Not toxic. No urinary complaints. Patient has been receiving [place] every 2 weeks. Currently having reassuring NST at this time in the department. Heart rate 140. Related Data Previous Rx's Medication Instructions Recorded prenat.vits,hannah,[id number] 1 tab PO DAILY #90 tab 03/08/21 breast pump #1 ea 06/01/21 Ursodeoxycholic Acid 300mg 300 mg PO TID #90 tab-cap 07/20/21 ondansetron 4 mg disintegrating 4 mg PO Q8H PRN #10 tab 08/13/21 tablet Allergies Allergy/AdvReac Type Severity Reaction Status Date / Time No Known Drug Allergies Allergy Verified 01/25/21 15:21 Review of Systems Review of Systems Narrative: GENERAL: Denies chills, fatigue, malaise, fever, sweats. HEENT: Denies sinus pain, ear pain, sore throat RESPIRATORY: Denies dyspnea, cough CARDIOVASCULAR: Denies chest pain, palpitations GASTROINTESTINAL: Complaints positive for vomiting, negative abdominal pain : Denies dysuria, frequency, hematuria MUSCULOSKELETAL: denies muscle or bony pain SKIN: Denies rash, skin lesions NEUROLOGIC: Denies weakness, numbness ROS Unobtainable: All systems reviewed & are unremarkable except as noted in HPI and below Patient History Medical History Dermatitis (~08/2019) Eczema (~08/2019) Left hip pain (~2004) Left wrist fracture (~2010) Mitral valve prolapse (~2011) Pulmonary hypertension (~2011) Right hip pain (~2004) Scoliosis (~2008) Surgical History History of tonsillectomy and adenoidectomy (~2002) Family History Mother Cellulitis and abscess of leg Father Sleep apnea Hearing loss Asthma Grandmother Diabetes mellitus Cirrhosis of liver Grandfather Family estrangement Grandmother No problems noted. Grandfather Diabetes mellitus Social History marital status: number of children: 0 household members: spouse and family (Her Brother, his two kids & her parents are moving in with her next week. ) lives independently: Yes caregiver/support person: No housing: house pets and animals: Yes (2 dogs: safe & aware. 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.) current occupational exposures/hazards: No raphael/mormonism: Protestant special raphael needs: No seatbelt use: always working smoke detector in home: Yes fire extinguisher in home: No carbon monox detector in home: Yes firearms in home: Yes firearms unloaded and locked: Yes do you feel safe at home: Yes Smoking Status: Never smoker second hand exposure: No alcohol intake: former (1 drink per month.) substance use type: does not use during the past year weight has: remained stable well-balanced diet: daily or most days daily servings fruits/ve-4 caffeine: No Type(s) of exercise: regular exercise (Sometimes Nuria classes. ) and running (Total 9 miles a week. Did half-marathon recently.) frequency: 3-4 times per week Smoking Status: Never smoker Exam Narrative Exam Narrative: GENERAL: in no distress, not toxic not dyspneic HEAD: Normocephalic. EYES: Pupils equal round No scleral icterus. ENT: Mucous membranes moist. NECK: Trachea midline. CARDIOVASCULAR: Regular rate and rhythm without murmurs, tachycardia RESPIRATORY: Clear to auscultation. Breath sounds equal bilaterally. No wheezes, rales, or rhonchi. GASTROINTESTINAL: Abdomen soft, non-tender, bowel sounds present. No peritoneal signs. EXTREMITIES: No gross deformities. BACK: No flank tenderness. NEURO: AOx4. SKIN: Warm and dry PSYCH: Not anxious, is cooperative Initial Vital Signs Initial Vital Signs: Vital Signs Temperature 97.8 F 08/13/21 16:15 Pulse Rate 115 H 08/13/21 16:15 Respiratory Rate 22 08/13/21 16:15 Blood Pressure 128/83 08/13/21 16:15 Pulse Oximetry 100 08/13/21 16:15 Course Course Course Narrative: No new issues during course of stay. NST is reactive. Orders Ordered: ED Orders 08/13/21 16:40 Complete Blood Count AUTO DIFF Stat Comprehensive Metabolic Panel Stat 08/13/21 17:48 Urine Microscopic Stat Discontinued Medications Sodium Chloride (Normal Saline 0.9%) 1,000 mls @ 1,000 mls/hr IV BOLUS ONE Stop: 08/13/21 17:22 Last Infusion: 08/13/21 17:38 Dose: 0 mls/hr Documented by: Admin: 08/13/21 16:42 Dose: 1,000 mls/hr Documented by: SPENCER Ondansetron HCl (Ondansetron 4 Mg/2 Ml Inj) 4 mg IV NOW ONE Stop: 08/13/21 16:24 Last Admin: 08/13/21 16:42 Dose: 4 mg Documented by: SPENCER Ondansetron HCl (Ondansetron 4 Mg Odt) 4 mg SL NOW ONE Stop: 08/13/21 20:02 Last Admin: 08/13/21 20:10 Dose: 4 mg Documented by: MARVA Ondansetron HCl (Ondansetron 4 Mg Odt Prepack) 1 bottle [facility] ONE Stop: 08/13/21 20:55 Last Admin: 08/13/21 20:59 Dose: 1 bottle Documented by: MARVA Reevaluation(s) Reevaluation #1: Patient tolerating fluids by mouth. Reviewed results with her and she agrees for discharge home. Return precautions reviewed with her Time: 20:42 Consultations Consultation #1: Spoke with Dr. Love, patient to be discharged home. Scheduled for induction in 2 days. Is known to be COVID positive. Labs reviewed. She has review the NST. Time: 20:15 Vital Signs Vital signs: Vital Signs - 8 hr 08/13/21 19:49 Pulse Rate 86 Respiratory Rate 22 Blood Pressure 123/92 H Pulse Oximetry 100 MDM - Nausea/Vomiting/Diarrhea Differential Diagnosis Differential diagnosis: Likely other (Hyperemesis gravidarum. COVID infection, cholestasis.) Lab Data Result diagrams: 08/13/21 16:40 08/13/21 16:40 Labs: Lab Results 08/13/21 08/13/21 08/13/21 Range/Units 16:40 16:40 17:48 WBC 7.4 (4.5-11.0) X10^3/uL RBC 4.36 (4.0-5.2) X10^6/uL Hgb 13.0 (12.0-16.0) g/dL Hct 38.0 (36-46) % MCV 87.2 (80-100) fL MCH 29.9 (26-34) PG MCHC 34.3 (30-36) % RDW 14.2 (11.6-14.8) % Plt Count 288 (150-400) X10^3/uL Neut % (Auto) 81.7 H (50-75) % Lymph % (Auto) 12.9 L (25-40) % [place] % (Auto) 4.9 (3-14) % Eos % (Auto) 0.1 L (2-4) % Baso % (Auto) 0.4 (0-2) % Neut # (Auto) 6100 (2254-9509) /uL Lymph # (Auto) 1000 L (4046-6062) /uL [place] # (Auto) 400 (0-900) /uL Eos # (Auto) 0 (0-450) /uL Baso # (Auto) 0 (0-100) /uL Sodium 133 L (137-145) mmol/L Potassium 3.8 (3.4-5.1) mmol/L Chloride 103 (98-107) mmol/L Carbon Dioxide 21 L (22-32) mmol/L BUN 3 L (7-17) mg/dL Creatinine 0.60 (0.52-1.04) mg/dL Estimated GFR > 60.0 (>60) mL/min BUN/Creatinine Ratio 5.0 L (6-22) Glucose 91 (70-100) mg/dL Calcium 8.9 (8.4-10.2) mg/dL Total Bilirubin 0.9 (0.2-1.3) mg/dL AST 125 H (14-36) IU/L ALT 127 H (<35) IU/L Alkaline Phosphatase 258 H (38-126) U/L Total Protein 7.3 (6.3-8.2) g/dL Albumin 3.8 (3.5-5.0) g/dL Globulin 3.5 (1.7-4.1) g/dL Albumin/Globulin Ratio 1.1 (1.0-2.8) Urine RBC None seen (0-5/HPF) Urine WBC 5-10/hpf H (0-5/HPF) Ur Squamous Epith Cells 5-10 /hpf H (0-5/HPF) Ur Transition Epith Cell 1-5/hpf (0-5/HPF) Urine Bacteria Moderate (10-30) H (None) Ur Culture Indicated? Cult not indicated Urine Dip Bedside Urine Glucose Negative Bedside Urine Bilirubin - Negative Bedside Urine Ketone +++ 80 Urine Specific [place] 1.015 Bedside Urine Occult Blood - Negative Bedside Urine pH 6.5 Bedside Urine Protein + 30 Bedside Urine Urobilinogen +/- 1mg Bedside Urine Nitrite - Negative Bedside Urine Leukocytes + 70 Esterase MDM Narrative Medical decision making narrative: Appropriate for discharge home. Liver enzymes slightly elevated from baseline likely due to COVID infection. Patient is not toxic. Feels much better after Zofran and IV fluids. Does desire discharge home. Reviewed with OBGYN and appropriate for discharge home for quarantine and oral hydration. Scheduled for induction in 2 days. Not toxic discharge. No x-ray indicated this time. No hypoxia no tachypnea. 100% room air Discharge Plan Departure Patient Disposition: Home Clinical Impression: Cholestasis during in third trimester, Nausea and vomiting during , COVID-19 virus infection Instructions: DI for Hyperemesis Gravidarum, DI for COVID-19 (Suspected or Confirmed ) Activity Restrictions/Additional Instructions: Keep well hydrated. See your OBGYN doctor on Friday as scheduled. Return if worsening or if any questions or concerns. Return if any trouble breathing. Be sure to continue quarantine. Return if any questions or concerns. Prescriptions: New ondansetron 4 mg tablet,disintegrating 4 mg PO Q8H PRN (Reason: nausea and vomiting) Qty: 10 0RF No Action prenat.vits,hannah,[id number] Tablet 1 tab PO DAILY Qty: 90 3RF (DME) breast pump Device See Rx Instructions .ROUTE .MEDSUPPLY Qty: 1 0RF Rx Instructions: As directed Ursodeoxycholic Acid 300mg tablet 300 mg PO TID Qty: 90 5RF Referrals: Justino Anders ARNP [Primary Care Provider] - Belén Love MD [Physician] -
--- NOTE | 2021-08-13 18:30 | PC.NURSE ---
Pt had reactive NST tracing performed by Lina Serrano RN - OB RN. FHR = 140's.
[2021-08-13 19:04] LABS: Bacteria Urine Moderate (10-30); Culture Indicated Urine Cult Not Indicated; RBC Urine None Seen (0-5/HPF); Squamous Epithelial Cell Urine 5-10 /HPF (0-5/HPF); Transitional Epi Cells Urine 1-5/HPF (0-5/HPF); WBC Urine 5-10/HPF (0-5/HPF)
[2021-08-13 19:49] VITALS: BP 123/92; PULSE 86; RESP 22; O2SAT 100
[2021-08-13] MEDS: ONDANSETRON 4 MG ODT SL (20:10)
[2021-08-13] MEDS: ONDANSETRON 4 MG ODT PREPACK 1 BOTTLE MISC (20:59)
== END 2021-08-13 21:06 | disposition home or self-care (01) ==
PROVIDERS: Emergency Medicine; Emergency Provider Emergency Medicine; PCP Registered Nurse
DX: O26.613 Liver and biliary tract disorders in pregnancy, third trimester (principal); O21.9 Vomiting of pregnancy, unspecified; U07.1 COVID-19; K83.1 Obstruction of bile duct; Z3A.36 36 weeks gestation of pregnancy
CPT/HCPCS: 36415; 80053; 81003; 81015; 85025; 96361; 96374; 99284; J2405

== ENCOUNTER → 2021-08-14 10:53 | Outpatient (CLI) | payer OTHER, SELFPAY ==
[2021-08-14 11:22] LABS: COVID19 -Nasal RAPID POSITIVE (Negative)
== END ==
PROVIDERS: PCP Registered Nurse; Visit Provider Physician Assistant
DX: U07.1 COVID-19 (principal)
CPT/HCPCS: 87635

== ENCOUNTER 2021-08-14 17:14 | Emergency (ER) | payer OTHER, SELFPAY ==
[2021-08-14 17:25] VITALS: BP 120/74; PULSE 102; RESP 15; TEMP 36.3; O2SAT 99; BMI 37.0
[2021-08-14] MEDS: ONDANSETRON 4 MG/2 ML INJ IV (18:00)
--- NOTE | 2021-08-14 18:27 | ED_ITS ---
HPI - Nausea/Vomiting/Diarrhea General Chief complaint: Nausea/Vomiting/Diarrhea Stated complaint: not able to keep anything down - covid + Time Seen by Provider: 08/14/21 17:38 Source: patient Mode of arrival: Ambulatory History of Present Illness HPI Narrative: Patient is a 26-year-old female G 1p 0 is at 36 weeks being followed by Dr. Richard and is scheduled for induction tomorrow for cholestasis. She was diagnosed with 7 days ago. She has had body aches fever and for last 2 days has been unable to keep anything down. She was seen evaluated in the emergency department yesterday she received IV fluids and Zofran and overall feeling much better. She continued to vomit today. She denies any abdominal pain no abnormal vaginal discharge. She states that her body aches have improved. OB sent her here for IV fluids. Related Data Previous Rx's Medication Instructions Recorded prenat.vits,hannah,[id number] 1 tab PO DAILY #90 tab 03/08/21 breast pump #1 ea 06/01/21 Ursodeoxycholic Acid 300mg 300 mg PO TID #90 tab-cap 07/20/21 ondansetron 4 mg disintegrating 4 mg PO Q8H PRN #10 tab 08/13/21 tablet Allergies Allergy/AdvReac Type Severity Reaction Status Date / Time No Known Drug Allergies Allergy Verified 08/14/21 17:25 Review of Systems Review of Systems Narrative: GENERAL: Denies chills, fatigue, malaise, fever, sweats, travel HEENT: Denies sinus pain, ear pain, sore throat, difficulty swallowing, neck pain RESPIRATORY: Denies dyspnea, cough, wheezing, hemoptysis, sputum. CARDIOVASCULAR: Denies chest pain, palpitations, orthopnea, edema GASTROINTESTINAL: See HPI : Denies dysuria, frequency, incontinence, hematuria, urinary retention, flank pain. MUSCULOSKELETAL: Denies weakness, joint pain, or bony pain SKIN: No rash, no erythema, no pruritus NEUROLOGIC: Denies weakness, dizziness, headache, numbness, change in speech, confusion PSYCHIATRIC: No concerning psychosocial issues. 12 point review of systems is negative except for those stated above and HPI Patient History Medical History Dermatitis (~08/2019) Eczema (~08/2019) Left hip pain (~2004) Left wrist fracture (~2010) Mitral valve prolapse (~2011) Pulmonary hypertension (~2011) Right hip pain (~2004) Scoliosis (~2008) Surgical History History of tonsillectomy and adenoidectomy (~2002) Family History Mother Cellulitis and abscess of leg Father Sleep apnea Hearing loss Asthma Grandmother Diabetes mellitus Cirrhosis of liver Grandfather Family estrangement Grandmother No problems noted. Grandfather Diabetes mellitus Social History marital status: number of children: 0 household members: spouse and family lives independently: Yes caregiver/support person: No housing: house pets and animals: Yes (2 dogs: safe & aware. ) education level: college occupational status: employed current occupational exposures/hazards: No raphael/restoration: Restoration special raphael needs: No seatbelt use: always working smoke detector in home: Yes fire extinguisher in home: No carbon monox detector in home: Yes firearms in home: Yes firearms unloaded and locked: Yes do you feel safe at home: Yes Smoking Status: Never smoker second hand exposure: No alcohol intake: former substance use type: does not use during the past year weight has: remained stable well-balanced diet: daily or most days daily servings fruits/ve-4 caffeine: No Type(s) of exercise: regular exercise and running frequency: 3-4 times per week Smoking Status: Never smoker alcohol intake frequency: holidays/special occasions only Substance Use Type: does not use Exam Initial Vital Signs Initial Vital Signs: Vital Signs Temperature 97.4 F L 08/14/21 17:25 Pulse Rate 102 H 08/14/21 17:25 Respiratory Rate 15 08/14/21 17:25 Blood Pressure 120/74 08/14/21 17:25 Pulse Oximetry 99 08/14/21 17:25 GENERAL: Alert 26-year-old female in no acute] distress. HEENT: Head atraumatic,EOMI, pupils reactive, face symmetric, [moist] mucous membranes CARDIOVASCULAR: Regular rate and rhythm without murmurs, rubs or gallops. RESPIRATORY: Breath sounds equal bilaterally, no wheezes rales or rhonchi. ABDOMEN: Soft, gravid nontender EXTREMITIES: Normal range of motion, no clubbing or edema. Neurovascularly intact NEUROLOGICAL: Alert and oriented x4.Normal gait and speech. SKIN: Warm, dry, no laceration, no petechiae, no rashes or lesions. Course Orders Ordered: ED Orders 08/14/21 18:37 Complete Blood Count AUTO DIFF Stat Comprehensive Metabolic Panel Stat Ictotest Urine Stat Lipase Stat UA Complete [Urinalysis and Microscopic] Stat Urine Culture Stat Discontinued Medications Sodium Chloride (Normal Saline 0.9%) 1,000 mls @ 1,000 mls/hr IV BOLUS ONE Stop: 08/14/21 18:37 Last Infusion: 08/14/21 19:35 Dose: 0 mls/hr Documented by: Admin: 08/14/21 18:37 Dose: 1,000 mls/hr Documented by: GIOVANNY Ondansetron HCl (Ondansetron 4 Mg/2 Ml Inj) 4 mg IV NOW ONE Stop: 08/14/21 17:39 Last Admin: 08/14/21 18:00 Dose: 4 mg Documented by: GIOVANNY Vital Signs Vital signs: Vital Signs - 8 hr 08/14/21 17:25 08/14/21 19:36 08/14/21 20:31 Temperature 97.4 F L Pulse Rate 102 H 95 H 90 Respiratory Rate 15 18 16 Blood Pressure 120/74 118/78 Pulse Oximetry 99 100 100 MDM - Nausea/Vomiting/Diarrhea Lab Data Result diagrams: 08/14/21 18:37 08/14/21 18:37 Labs: Lab Results 08/14/21 08/14/21 08/14/21 Range/Units 18:37 18:37 18:37 WBC 7.5 (4.5-11.0) X10^3/uL RBC 4.33 (4.0-5.2) X10^6/uL Hgb 13.0 (12.0-16.0) g/dL Hct 38.2 (36-46) % MCV 88.1 (80-100) fL MCH 29.9 (26-34) PG MCHC 34.0 (30-36) % RDW 14.2 (11.6-14.8) % Plt Count 271 (150-400) X10^3/uL Neut % (Auto) 81.6 H (50-75) % Lymph % (Auto) 13.1 L (25-40) % [place] % (Auto) 4.9 (3-14) % Eos % (Auto) 0.1 L (2-4) % Baso % (Auto) 0.3 (0-2) % Neut # (Auto) 6100 (6823-1478) /uL Lymph # (Auto) 1000 L (5457-9128) /uL [place] # (Auto) 400 (0-900) /uL Eos # (Auto) 0 (0-450) /uL Baso # (Auto) 0 (0-100) /uL Sodium 134 L (137-145) mmol/L Potassium 3.9 (3.4-5.1) mmol/L Chloride 106 (98-107) mmol/L Carbon Dioxide 18 L (22-32) mmol/L BUN 2 L (7-17) mg/dL Creatinine 0.66 (0.52-1.04) mg/dL Estimated GFR > 60.0 (>60) mL/min BUN/Creatinine Ratio 3.0 L (6-22) Glucose 78 (70-100) mg/dL Calcium 9.2 (8.4-10.2) mg/dL Total Bilirubin 1.2 (0.2-1.3) mg/dL AST 103 H (14-36) IU/L ALT 106 H (<35) IU/L Alkaline Phosphatase 259 H (38-126) U/L Total Protein 7.3 (6.3-8.2) g/dL Albumin 3.7 (3.5-5.0) g/dL Globulin 3.6 (1.7-4.1) g/dL Albumin/Globulin Ratio 1.0 (1.0-2.8) Lipase 75 (23-300) U/L Urine Color Yellow Urine Appearance Clear Urine pH 5.5 (4.5-8.0) Ur Specific [place] 1.020 (1.000-1.035) Urine Protein 1+ H (Negative) Urine Glucose (UA) Negative (Negative) g/dL Urine Ketones 3+ H (NEGATIVE) Urine Occult Blood Negative (Negative) Urine Nitrate Negative (Negative) Urine Bilirubin 1+ H (NEGATIVE) Ur Bilirubin Confirm Positive H (Negative) Urine Urobilinogen 1.0 (0.2) E.U./dL Ur Leukocyte Esterase Trace H (NEGATIVE) Urine RBC None seen (0-5/HPF) Urine WBC 5-10/hpf H (0-5/HPF) Ur Squamous Epith Cells 1-5 /hpf (0-5/HPF) Amorphous Sediment 1+ Urine Bacteria Moderate (10-30) H (None) Urine Mucus 1+ H (Negative) Ur Culture Indicated? Specimen cultured MDM Narrative Medical decision making narrative: The patient received 1 L fluid Zofran is overall feeling significantly better. Bicarb is slightly lower today at 18 yesterday was 21. Urine does show bacteria. She had an STD in the emergency department which did not show active signs of labor or concerning decelerations. sHe is tolerating fluids. she has Zofran other medications at home. 8pm- Discussed with Dr. Patricia on-call OBGYN who agrees at this time okay to follow-up tomorrow as planned. No need for antibiotics. Discharge Plan Departure Patient Disposition: Home Clinical Impression: COVID-19 Instructions: DI for Vomiting -- Adult, DI for COVID-19 (Suspected or Confirmed ) Activity Restrictions/Additional Instructions: *You have been diagnosed with you are diagnosed with COVID and nausea vomiting *What to do: Increase fluid intake as tolerated. Recommend Gatorade or greater aid like substance. Please return tomorrow as scheduled for your induction. You may try T with honey in it to help with cough. Continue to monitor oxygen at home if oxygen drops below 90% need to return to emergency department. *Continue to take medications as directed Tylenol 1000 mg every 6 hours if needed for fever *Follow up with your primary care provider in 2-3 days *Return to ER if you should have increasing shortness of breath, persistent vomiting, abdominal pain, vaginal bleeding or any new, worsening or concerning symptoms Prescriptions: No Action prenat.vits,hannah,[id number] Tablet 1 tab PO DAILY Qty: 90 3RF (DME) breast pump Device See Rx Instructions .ROUTE .MEDSUPPLY Qty: 1 0RF Rx Instructions: As directed Ursodeoxycholic Acid 300mg tablet 300 mg PO TID Qty: 90 5RF ondansetron 4 mg tablet,disintegrating 4 mg PO Q8H PRN (Reason: nausea and vomiting) Qty: 10 0RF Referrals: Jusitno Anders ARNP [Primary Care Provider] - Belén Love MD [Physician] -
[2021-08-14] MEDS: SODIUM CHLORIDE 0.9% 1,000 ML 1000 ML IV (18:37)
[2021-08-14 18:50] LABS: Add Manual Diff / Slide Review NO; Basophils Absolute Auto 0 /uL (0-100); Basophils Percent Auto 0.3 % (0-2); Eosinophils Absolute Auto 0 /uL (0-450); Eosinophils Percent Auto 0.1 % (2-4); Hematocrit 38.2 % (36-46); Lymphocytes Absolute Auto 1000 /uL (1100-4500); Lymphocytes Percent Auto 13.1 % (25-40); Mean Corpuscular Hemoglobin 29.9 PG (26-34); Mean Corpuscular Volume 88.1 fL (80-100); Monocytes Absolute Auto 400 /uL (0-900); Monocytes Percent Auto 4.9 % (3-14); Neutrophils Absolute Auto 6100 /uL (1500-7000); Neutrophils Percent Auto 81.6 % (50-75); Platelet Count 271 X10^3/uL (150-400); Red Blood Cell Count 4.33 X10^6/uL (4.0-5.2); Red Cell Distribution Width 14.2 % (11.6-14.8); White Blood Cell Count 7.5 X10^3/uL (4.5-11.0)
[2021-08-14 18:51] LABS: Appearance Urine UA CLEAR; Bilirubin Urine UA 1+ (NEGATIVE); Color Urine UA YELLOW; Glucose Urine UA NEGATIVE (Negative); Ketones Urine UA 3+ (NEGATIVE); Leukocyte Esterase Urine UA TRACE (NEGATIVE); Nitrite Urine UA NEGATIVE (Negative); Occult Blood Urine UA NEGATIVE (Negative); Protein Urine UA 1+ (Negative); pH Urine UA 5.5 (4.5-8.0)
[2021-08-14 19:03] LABS: Alanine Aminotransferase 106 IU/L (<35); Albumin 3.7 g/dL (3.5-5.0); Alkaline Phosphatase 259 U/L (38-126); Aspartate Aminotransferase 103 IU/L (14-36); Bilirubin Total 1.2 mg/dL (0.2-1.3); Calcium 9.2 mg/dL (8.4-10.2); Carbon Dioxide 18 mmol/L (22-32); Chloride 106 mmol/L (98-107); Estimated Glomerular Filt Rate > 60.0 mL/min (>60); Globulin 3.6 g/dL (1.7-4.1); Glucose 78 mg/dL (70-100); HEMOLYSIS < 15 (0-50); Lipase 75 U/L (23-300); Potassium 3.9 mmol/L (3.4-5.1); Sodium 134 mmol/L (137-145); Total Protein 7.3 g/dL (6.3-8.2)
[2021-08-14 19:08] LABS: Amorphous Sediment Urine 1+; Ictotest Urine Positive (Negative); RBC Urine None Seen (0-5/HPF); Squamous Epithelial Cell Urine 1-5 /HPF (0-5/HPF); WBC Urine 5-10/HPF (0-5/HPF)
[2021-08-14 19:09] LABS: Bacteria Urine Moderate (10-30); Culture Indicated Urine Specimen Cultured; Mucus Urine 1+ (Negative)
[2021-08-14 19:13] LABS: Blood Urea Nitrogen 2 mg/dL (7-17)
[2021-08-14 19:36] VITALS: PULSE 95; RESP 18; O2SAT 100
--- NOTE | 2021-08-14 19:41 | PC.NURSE ---
Pt 36.5 weeks , COVID+ and being induced tomorrow, presents with nausea and vomiting and unable to tolerate fluids. FHT 160, BC RN in ED for NST exam. IV placed and given 1L NS bolus and 4mg zofran. PO challenged with ice chips and passed. Pt appears well. 100% RA. intermittent dry cough, afebrile, HR 90's and regular. NAD
[2021-08-14 20:31] VITALS: BP 118/78; PULSE 90; RESP 16; O2SAT 100
== END 2021-08-14 20:31 | disposition home or self-care (01) ==
PROVIDERS: Emergency Medicine; Emergency Provider Emergency Medicine; PCP Registered Nurse; Referring Provider Family Medicine
DX: O98.513 Other viral diseases complicating pregnancy, third trimester (principal); U07.1 COVID-19; Z3A.36 36 weeks gestation of pregnancy
CPT/HCPCS: 36415; 80053; 81001; 83690; 85025; 87086; 87635; 96361; 96374; 99284; J2405

== ENCOUNTER 2021-08-15 18:48 | Inpatient (IN) | payer OTHER, SELFPAY ==
[2021-08-15 21:22] LABS: Add Manual Diff / Slide Review NO; Basophils Absolute Auto 0 /uL (0-100); Basophils Percent Auto 0.2 % (0-2); Eosinophils Absolute Auto 0 /uL (0-450); Eosinophils Percent Auto 0.1 % (2-4); Hematocrit 38.1 % (36-46); Hemoglobin 12.9 g/dL (12.0-16.0); Lymphocytes Absolute Auto 900 /uL (1100-4500); Lymphocytes Percent Auto 11.9 % (25-40); Mean Corpuscular Volume 88.3 fL (80-100); Monocytes Absolute Auto 400 /uL (0-900); Neutrophils Absolute Auto 6600 /uL (1500-7000); Neutrophils Percent Auto 82.8 % (50-75); Platelet Count 288 X10^3/uL (150-400); Red Blood Cell Count 4.31 X10^6/uL (4.0-5.2); Red Cell Distribution Width 14.1 % (11.6-14.8)
[2021-08-15] MEDS: DINOPROSTONE VAG (CERVIDIL) 10 MG VAG (21:30)
[2021-08-15] MEDS: ONDANSETRON 4 MG/2 ML INJ IV (21:30)
[2021-08-15] MEDS: ZOLPIDEM 5 MG TABLET 10 MG PO (22:00)
[2021-08-15] MEDS: METOCLOPRAMIDE 10 MG/2 ML INJ IV (22:20)
--- NOTE | 2021-08-16 09:48 | PM.OBHP.IH.1 ---
OB HPI Date/Time Date of admission: 08/15/21 Date Patient Seen: 08/16/21 Time Patient Seen: 08:45 History of Present Condition Chief complaint: Induction JOSE Calculator Estimated Delivery Date Method Current WG Current Estimate 09/06/21 Manual 37w 0d Final JOSE - YING Other Estimates 09/06/21 LMP (Certain) 37w 0d 09/08/21 Ultrasound #1 36w 5d Estimated Gestational Age (weeks): 37w0d : 1 Para: 0 Narrative: 26yo at 37w0d here for IOL for cholestasis of . She denies any contractions prior to presentation. She has been feeling her baby move regularly. No LOF or vaginal bleeding. The pts was complicated by cholestasis of diagnosed at 32 weeks with itchy palms/feet and elevated liver enzymes and bile acids. She has had reassuring testing since then. Her bile acids initially normalized, but then brittany slightly again. Her liver enzymes have been fluctuating, but are recently more elevated. This could also be in part due to her testing positive for COVID last week after she lost her sense of taste and smell. Since then, she has developed a cough that is gradually improving in the past 1-2 days, and significant nause and vomiting for which she was seen in the ED on 08/13 and 08/14 for IV fluids. care: good care, initiated at week # (8) and pounds weight gain (33) Dating criteria OB: LMP confirmed by 1st trimester US Ultrasounds: normal 1st trimester US and normal mid trimester US Obstetrical complications: other (cholestasis of diagnosed at 32 weeks) Medical complications OB: other (COVID positive, diagnosed last week) Indications Indication for induction OB: other (cholestasis of ) Preadmission Labs Last OB Lab Results: Blood Type O Positive 08/15/21 21:00 08/15/21 Antibody Screen Negative 08/15/21 21:00 08/15/21 Hematocrit 38.1 % (36-46) 08/15/21 21:00 08/15/21 Hemoglobin 12.9 g/dL (12.0-16.0) 08/15/21 21:00 08/15/21 Hepatitis B Surface Antigen Negative s/c (NEGATIVE) 01/30/21 16:35 01/30/21 Hepatitis C Antibody Negative s/c (NEGATIVE) 01/30/21 16:35 01/30/21 Rubella Antibody 1.3 IU/mL (>15) L 01/30/21 16:35 01/30/21 Varicella-Zoster IgG Antibody 741 index (Immune >165) 01/30/21 16:35 01/30/21 Glucose 1 Hour 127 mg/dL (76-139) 06/08/21 09:50 06/08/21 Group B Streptococcus (PCR) Pos for grp b strep H 08/07/21 09:47 08/07/21 -: Urine: negative Genetic Screens: Quad screen: Normal External Labs -: Urine: negative Evaluation Evaluation Baseline heart rate: 120 Variability: Moderate (11-25) monitor accelerations: Present Monitor Decelerations: Absent Contraction Frequency (minutes): 2 Status: Category l Dilation (cm): 0.5 Effacement (%): 30 Dilation: Closed Effacement: 0-30% station: -3 Position of cervix: posterior Consistency: soft Abrams score: 2 PFSH Medical History Dermatitis (~08/2019) Eczema (~08/2019) Left hip pain (~2004) Left wrist fracture (~2010) Mitral valve prolapse (~2011) Pulmonary hypertension (~2011) Right hip pain (~2004) Scoliosis (~2008) Surgical History History of tonsillectomy and adenoidectomy (~2002) Family History Mother Cellulitis and abscess of leg Father Sleep apnea Hearing loss Asthma Grandmother Diabetes mellitus Cirrhosis of liver Grandfather Family estrangement Grandmother No problems noted. Grandfather Diabetes mellitus Social History marital status: number of children: 0 household members: spouse and family lives independently: Yes caregiver/support person: No housing: house pets and animals: Yes (2 dogs: safe & aware. ) education level: college occupational status: employed current occupational exposures/hazards: No raphael/restorationism: Holiness special raphael needs: No seatbelt use: always working smoke detector in home: Yes fire extinguisher in home: No carbon monox detector in home: Yes firearms in home: Yes firearms unloaded and locked: Yes do you feel safe at home: Yes Smoking Status: Never smoker second hand exposure: No alcohol intake: former substance use type: does not use during the past year weight has: remained stable well-balanced diet: daily or most days daily servings fruits/ve-4 caffeine: No Type(s) of exercise: regular exercise and running frequency: 3-4 times per week Meds Home Medications and Allergies Home Medications Medication Instructions Recorded Confirmed Type prenat.vits,hannah,[id number] 1 tab PO DAILY #90 tab 03/08/21 08/15/21 Rx breast pump #1 ea 06/01/21 06/01/21 Rx Ursodeoxycholic Acid 300mg 300 mg PO TID #90 tab-cap 07/20/21 08/15/21 Rx ondansetron 4 mg disintegrating 4 mg PO Q8H PRN #10 tab 08/13/21 08/15/21 Rx tablet Allergies Allergy/AdvReac Type Severity Reaction Status Date / Time No Known Drug Allergies Allergy Verified 08/15/21 19:21 OB Exam Narrative Exam Narrative: Gen: NAD, sitting on birthing ball, breathing through contractions CV: RRR, no murmurs Resp: clear to auscultation bilaterally Abd: soft, nontender, gravid : fetus vertex Ext: trace edema Objective Labs Result Diagrams: 08/15/21 21:00 Labs: Laboratory Results - last 24 hr 08/15/21 08/15/21 21:00 21:00 WBC 8.0 RBC 4.31 Hgb 12.9 Hct 38.1 MCV 88.3 MCH 30.0 MCHC 34.0 RDW 14.1 Plt Count 288 Neut % (Auto) 82.8 H Lymph % (Auto) 11.9 L [place] % (Auto) 5.0 Eos % (Auto) 0.1 L Baso % (Auto) 0.2 Neut # (Auto) 6600 Lymph # (Auto) 900 L [place] # (Auto) 400 Eos # (Auto) 0 Baso # (Auto) 0 Blood Type O Positive Antibody Screen Negative Assessment and Plan Assessment and Plan Assessment and Plan narrative: 26yo at 37w0d here for IOL for cholestasis of diagnosed at 32 weeks. Pt also COVID positive, diagnosed last week - currently symptomatic with cough, nausea, and vomiting. GBS positive, Rh positive. Pt received cervidil last night, now with regular painful contractions. - Expectant management, anticipate - FHT reasuring - Minimal cervical change from last night, but pt is arjun regularly and painfully. Will monitor and recheck in 1-2 hours. If no change, consider romero catheter. - GBS positive, start penicillin prophylaxis now - Airborne precautions for COVID positive status - Desires natural methods for pain control
[2021-08-16] MEDS: METOCLOPRAMIDE 10 MG/2 ML INJ IV (11:26)
[2021-08-16] MEDS: LACTATED RINGERS 1,000 ML 100 ML IV ×3 (11:34→17:21)
[2021-08-16] MEDS: PENICILLIN G POTASSIUM 5,000,000 UNIT in DEXTROSE 5% IN WATER 250 ML IV (11:35)
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
[2021-08-16] MEDS: FENT 2MCG/ML BUPIV 0.125% EPI 200 MCG/100 ML PLAST..BAG 10 MCG EPIDURAL (13:25)
[2021-08-16] MEDS: OXYTOCIN PREMIX 30 UNIT/500 ML PLAST..BAG IV (14:33)
[2021-08-16] MEDS: PENICILLIN G POTASSIUM 3,000,000 UNIT/50 ML FROZ.PIGGY 100 UNIT IV ×2 (15:06→21:14)
[2021-08-16] MEDS: ONDANSETRON 4 MG/2 ML INJ IV (16:13)
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
[2021-08-16] MEDS: CODEINE/GUAIFENESIN LIQUID 5ML UDC 10 ML PO (20:33)
[2021-08-16] MEDS: FENT 2MCG/ML BUPIV 0.125% EPI 200 MCG/100 ML PLAST..BAG 6 MCG EPIDURAL (21:15)
--- NOTE | 2021-08-17 01:27 | PM.OBPRVD ---
Events: Labor Induction and Other (cholestasis of , COVID) Labor & Delivery Delivery date: 08/17/21 Intrapartal Events: Intolerance Cervical ripening method: per Cervidil protocol Induction method: per pitocin protocol Delivery augmentation: rupture of membranes Route of delivery: vacuum extraction Indication for instrumentation: nonreassuring FHR tracing Episiotomy description: None L&D Laceration Description: Perineal - 2nd Degree Delivery repair: vicryl (2-O) Estimated blood loss (mL): 200 Anesthesia Type: Epidural Complications: None Narrative: PROCEDURE: at 37w0d presented for IOL due to cholestasis of and was admitted to Labor and Delivery. She had tested positive for COVID a week prior to presentation, and remained symptomatic with cough and vomiting. She received Cervidil for induction, causing regular painful contractions. She received an early epidural for pain control. She was then started on pitocin. The patient progressed through the 1st stage over 6.5 hours. AROM was performed with production of meconium-stained fluid. When reaching the 2nd stage, the pt began having recurrent variable decels. These were initially controlled with position changes. FSE was placed due to difficulty monitoring on hands and knees. The pt was pushing effectively, however due to ongoing recurrent variable decels that were requiring increasingly longer times to return to baseline, the decision was made to proceed with vacuum-assisted vaginal delivery. Patient was evaluated and noted to have adequate pain control. Patient counseled on risks/benefits/alternatives of vacuum assisted delivery. Risks were discussed and they included but were not limited to a need for an episiotomy, pressure casas on the baby, lacerations to the baby's scalp/face, serious damage including skull fracture, the need to proceed with an abdominal procedure, , paralysis of the baby's arms and/or legs, neurological impairment of the baby. Alternatives would include CS or further observation depending on status. Questions were answered and the patient verbalized an understanding and decided to proceed. Cervix completely dilated and maternal bladder emptied. Maternal pelvis was noted to be adequate. Vertex presentation in the OA position and +2 station. Moulding present, Caput present Vacuum cup of the [place] [employer]ni[employer] applied to the flexion point without difficulty and during contractions, pressure applied between 400-600 mmHg as indicated in the green zone of the pressure gauge. Infant delivered after 17 minutes of vacuum application, with 2 pop-offs, over a series of contractions. The anterior shoulder and remainder of the infant was delivered without difficulty at 00:54. The cord was clamped and cut after it stopped pulsating. Infant was examined with no evidence of injury noted. APGARs were 9/9. The perineum and vagina were inspected with 2nd degree perineal laceration repaired with 2-O Vicryl. PREPROCEDURE DIAGNOSIS: Intrauterine at 37w1d Cholestasis of COVID Meconium-stained amniotic fluid GBS positive, adequate prophylaxis RH negative POSTPROCEDURE DIAGNOSIS: Intrauterine at 37w1d, delivered Same as preprocedure Nonreassuring heart tones Vacuum-assisted vaginal delivery Baby 1: Infant gender: Female Presentation: vertex Position: Left Occiput Anterior Placenta delivery description: Spontaneous score (1 min): 9 score (5 min): 9 weight: 6 lb 3.014 oz Plan for aftercare: Routine care (repeat CMP in the morning)
[2021-08-17] MEDS: ACETAMINOPHEN 325 MG TABLET 650 MG PO ×4 (03:21→23:24)
[2021-08-17] MEDS: IBUPROFEN 600 MG TABLET PO ×4 (03:21→23:24)
[2021-08-17] MEDS: DERMOPLAST SPRAY 20% 60 ML 1 SPRAY TOP (03:22)
[2021-08-17] MEDS: PRENATAL VIT,CALC/IRON/FOLIC 1 TABLET 1 TAB PO (11:17)
[2021-08-17] MEDS: DOCUSATE 100 MG CAPSULE PO (11:18)
[2021-08-17 14:14] LABS: Alanine Aminotransferase 53 IU/L (<35); Albumin 2.7 g/dL (3.5-5.0); Alkaline Phosphatase 220 U/L (38-126); Aspartate Aminotransferase 62 IU/L (14-36); Bilirubin Total 0.7 mg/dL (0.2-1.3); Calcium 9.4 mg/dL (8.4-10.2); Carbon Dioxide 19 mmol/L (22-32); Chloride 110 mmol/L (98-107); Estimated Glomerular Filt Rate > 60.0 mL/min (>60); Globulin 2.8 g/dL (1.7-4.1); Glucose 109 mg/dL (70-100); HEMOLYSIS < 15 (0-50); Potassium 3.7 mmol/L (3.4-5.1); Sodium 135 mmol/L (137-145); Total Protein 5.5 g/dL (6.3-8.2)
[2021-08-17 14:24] LABS: BUN Creatinine Ratio 2.8 (6-22); Blood Urea Nitrogen 2 mg/dL (7-17)
[2021-08-18] MEDS: IBUPROFEN 600 MG TABLET PO ×2 (06:21→12:18)
[2021-08-18] MEDS: ACETAMINOPHEN 325 MG TABLET 650 MG PO ×2 (06:21→12:18)
[2021-08-18 09:48] VITALS: BP 114/73; PULSE 71; RESP 20; TEMP 36.1
[2021-08-18] MEDS: PRENATAL VIT,CALC/IRON/FOLIC 1 TABLET 1 TAB PO (11:00)
[2021-08-18] MEDS: DOCUSATE 100 MG CAPSULE PO (11:00)
--- NOTE | 2021-08-18 11:21 | P.DS_ITS ---
Discharge Providers Provider Date of admission: 08/15/21 18:48 Discharge Date: 08/18/21 Primary care physician: YESENIA Park Consults: 08/18/21 01:31 Consult to Time Clock Inspector Routine Comment: Discharge provider: Monse Pinon DO Summary Hospital Course Date Patient Seen: 08/18/21 Time Patient Seen: 12:04 Diagnoses: 37 weeks of Cholestasis of COVID-19 infection Status post vacuum assisted vaginal delivery for nonreassuring heart tones Hospital Course: Patient is a 26-year-old after vacuum assisted vaginal delivery for nonreassuring heart tones on 08/17/21. Patient was brought in for induction at 37 weeks due to cholestasis of . She was also COVID positive as of the week prior and symptomatic. She received Cervidil for ripening and progressed after artificial rupture membranes and Pitocin. She received an epidural during labor. She developed recurrent variable decelerations prompting vacuum assisted vaginal delivery. Infant did well after delivery. course has been uncomplicated. She is ambulating, voiding, eating and passing flatus. Vaginal bleeding is light to moderate pain controlled with Tylenol and ibuprofen only. Infant is currently receiving phototherapy and will need to stay an additional day in the hospital. is going well. Patient was advised to call for fevers, severe pain or bleeding through more than a pad an hour. She will follow-up with Dr. Shaquille chávez in clinic in 6 weeks but will also be seen with her baby. Peripartum Data Infant Delivery Method: Assisted Delivery (Vacuum) Laceration Description: Perineal - 2nd Degree [place] 1: Gender: Female Discharge Diagnosis (1) COVID-19 virus infection: Status: Acute (2) Cholestasis during in third trimester: Status: Acute (3) Status post vacuum-assisted vaginal delivery: Status: Acute (4) Non-reassuring heart tones, delivered, current hospitalization: Status: Acute Status at Discharge Cognitive/behavioral status at discharge: at baseline, oriented Functional status at discharge: independent ambulation Overall status at discharge: patient is progressing back to baseline Time Spent with Patient Time attestation: Total time spent providing and/or coordinating discharge services: Time spent: Greater than 30 minutes Objective Labs Result Diagrams: 08/15/21 21:00 08/17/21 13:21 Labs: Laboratory Results - last 24 hr 08/17/21 13:21 Sodium 135 L Potassium 3.7 Chloride 110 H Carbon Dioxide 19 L BUN 2 L Creatinine 0.71 Estimated GFR > 60.0 BUN/Creatinine Ratio 2.8 L Glucose 109 H Calcium 9.4 Total Bilirubin 0.7 AST 62 H ALT 53 H Alkaline Phosphatase 220 H Total Protein 5.5 L Albumin 2.7 L Globulin 2.8 Albumin/Globulin Ratio 1.0 Exam Vital Signs (past 8 hours): - 08/18/21 09:48 Temperature 97 F L Pulse Rate 71 Respiratory Rate 20 Blood Pressure 114/73 Narrative Exam Narrative: General: Awake and alert, no acute distress. HEENT: NCAT, EOMI, moist oral mucosa CV: Regular rate and rhythm, no murmurs, rubs or gallops Lungs: CTAB, no wheezes, rales, or rhonchi Abdomen: Soft, nontender; bowel tones active; uterus firm 1 cm below umbilicus Extremities: Warm, no edema Discharge Plan Discharge Plan Patient Disposition: Home Discharge orders & Medications Prescriptions: Continued prenat.vits,hannah,ujx-pzeo-vqmre Tablet 1 tab PO DAILY Qty: 90 3RF (DME) breast pump Device See Rx Instructions .ROUTE .MEDSUPPLY Qty: 1 0RF Rx Instructions: As directed Discontinued Ursodeoxycholic Acid 300mg tablet 300 mg PO TID Qty: 90 5RF ondansetron 4 mg tablet,disintegrating 4 mg PO Q8H PRN (Reason: nausea and vomiting) Qty: 10 0RF No Action ibuprofen 600 mg tablet 600 mg PO Q6HR PRN (Reason: Pain, Mild (1-3)) Qty: 30 0RF docusate sodium 100 mg capsule 100 mg PO DAILY Qty: 30 0RF Follow up/Referrals: Justino Anders ARNP [Primary Care Provider] - 6 Weeks (Please schedule 6 week post check with Dr Love) Belén Love MD [Physician] - 6 Weeks (Please schedule 6 week post check with Dr Love) Visit Report/Discharge Packet Stand Alone Forms: Discharge: Care Visit Report Forms: Patient Portal/API, Stroke Signs & Symptoms Discharge Data Primary Care Provider: Justino Anders
[2021-08-18] MEDS: MEASLES,MUMPS,RUBELLA VACC/PF 0.5 ML VIAL SUBCUT (12:18)
== END 2021-08-18 12:30 | disposition home or self-care (01) | DRG 805 ==
PROVIDERS: Admitting Provider Family Medicine; PCP Registered Nurse; Referring Provider Family Medicine; Visit Provider Family Medicine
DX: O26.62 Liver and biliary tract disorders in childbirth (principal); K83.1 Obstruction of bile duct; Z37.0 Single live birth; U07.1 COVID-19; O98.52 Other viral diseases complicating childbirth; O99.824 Streptococcus B carrier state complicating childbirth; Z3A.37 37 weeks gestation of pregnancy; R43.8 Other disturbances of smell and taste; O76 Abnormality in fetal heart rate and rhythm complicating labor and delivery; O70.1 Second degree perineal laceration during delivery; O77.0 Labor and delivery complicated by meconium in amniotic fluid
CPT/HCPCS: 01967; 36415; 59050; 59200; 59400; 80053; 85025; 86850; 86900; 86901; G0379; J2405; J2540; J2590; J2765

== ENCOUNTER → 2021-09-03 13:40 | Outpatient (CLI) | payer OTHER, SELFPAY ==
[2021-09-03 16:12] LABS: TSH w/ Reflex to FT4 4.32 uIU/mL (0.47-4.68)
[2021-09-03 16:13] LABS: Prolactin 355.9 ng/mL (3.0-18.6)
[2021-09-04 10:07] LABS: Free T4, Direct Thyroxine 0.86 ng/dL (0.78-2.19)
== END ==
PROVIDERS: Family Medicine; PCP Family Medicine; Referring Provider Family Medicine; Visit Provider Family Medicine
DX: O92.70 Unspecified disorders of lactation (principal)
CPT/HCPCS: 36415; 84146; 84439; 84443

== ENCOUNTER → 2021-09-11 11:18 | Outpatient (CLI) | payer OTHER, SELFPAY ==
--- NOTE | 2021-09-11 11:20 | DI.US.S_ITS ---
PROCEDURE: US PELVIC COMPLETE INDICATIONS: CONCERN FOR RETAINED PLACENTA TECHNIQUE: Real-time scanning was performed of the pelvic organs, with image documentation. Additional endovaginal scanning was necessary due to incomplete visualization of the adnexal and endometrial structures by transabdominal scanning. COMPARISON: None. FINDINGS: Uterus: Uterus is anteverted and normal in size at 10.1 x 5.6 x 7.2 cm. The myometrium is mildly heterogeneous. The endometrium measures 4.5 mm combined thickness. Small amount of fluid is seen in the endometrial canal without evidence of a hypervascular area. Ovaries: The right ovary measures 2.4 x 1.4 x 1.4 cm. The left ovary measures 3 x 1.1 x 2.1 cm. The ovaries have a normal sonographic appearance. No adnexal masses are seen. Other: No pathologic free abdominal or pelvic fluid. IMPRESSION: No sonographic evidence of retained products of conception. Consider correlation with serial quantitative beta HCGs. We strive to produce accurate, complete, and clear reports of imaging services. To assist us in improving patient care, this report was composed using standard report templates and voice recognition software. Therefore, it may contain abnormal punctuation, insertions and/or omissions. Occasional wrong-word or sound-alike substitutions may occur. Though we review the report and make efforts to correct it, we do recommend that the report be read carefully in proper context to recognize any text inaccuracies. Dictated by: Chapincito Wiseman M.D. on 09/11/2021 at 13:01 Approved by: Chapincito Wiseman M.D. on 09/11/2021 at 13:04
== END ==
PROVIDERS: PCP Registered Nurse; Referring Provider Family Medicine; Visit Provider Family Medicine
DX: O73.0 Retained placenta without hemorrhage (principal)
CPT/HCPCS: 76830; 76856

== ENCOUNTER → 2021-10-09 14:33 | Outpatient (CLI) | payer OTHER, SELFPAY ==
[2021-10-09 16:04] LABS: Alanine Aminotransferase 33 IU/L (<35); Albumin 4.5 g/dL (3.5-5.0); Albumin Globulin Ratio 1.5 (1.0-2.8); Alkaline Phosphatase 104 U/L (38-126); Aspartate Aminotransferase 37 IU/L (14-36); BUN Creatinine Ratio 16.5 (6-22); Bilirubin Total 0.5 mg/dL (0.2-1.3); Blood Urea Nitrogen 13 mg/dL (7-17); Carbon Dioxide 27 mmol/L (22-32); Chloride 103 mmol/L (98-107); Estimated Glomerular Filt Rate > 60.0 mL/min (>60); Globulin 3.1 g/dL (1.7-4.1); Glucose 96 mg/dL (70-100); HEMOLYSIS < 15 (0-50); Potassium 4.6 mmol/L (3.4-5.1); Sodium 141 mmol/L (137-145); Total Protein 7.6 g/dL (6.3-8.2)
== END ==
PROVIDERS: PCP Registered Nurse; Referring Provider Family Medicine; Visit Provider Family Medicine
DX: K83.1 Obstruction of bile duct (principal); O26.613 Liver and biliary tract disorders in pregnancy, third trimester
CPT/HCPCS: 36415; 80053

== ENCOUNTER → 2022-10-18 15:02 | Outpatient (CLI) | payer OTHER, SELFPAY ==
[2022-10-18 15:35] LABS: Bilirubin Urine UA NEGATIVE (NEGATIVE); Color Urine UA YELLOW; Glucose Urine UA NEGATIVE (Negative); Ketones Urine UA NEGATIVE (NEGATIVE); Leukocyte Esterase Urine UA TRACE (NEGATIVE); Nitrite Urine UA NEGATIVE (Negative); Occult Blood Urine UA NEGATIVE (Negative); Protein Urine UA NEGATIVE (Negative); Urobilinogen Urine UA 0.2 E.U./dL (0.2)
[2022-10-18 15:37] LABS: Add Manual Diff / Slide Review NO; Basophils Absolute Auto 100 /uL (0-100); Basophils Percent Auto 0.5 % (0-2); Eosinophils Absolute Auto 100 /uL (0-450); Hematocrit 34.1 % (36-46); Hemoglobin 11.6 g/dL (12.0-16.0); Lymphocytes Absolute Auto 3000 /uL (1100-4500); Lymphocytes Percent Auto 25.6 % (25-40); Mean Corpuscular HGB Conc 33.9 % (30-36); Mean Corpuscular Hemoglobin 28.8 PG (26-34); Monocytes Absolute Auto 600 /uL (0-900); Neutrophils Absolute Auto 7900 /uL (1500-7000); Neutrophils Percent Auto 67.9 % (50-75); Platelet Count 342 X10^3/uL (150-400); Red Cell Distribution Width 14.6 % (11.6-14.8); White Blood Cell Count 11.6 X10^3/uL (4.5-11.0)
[2022-10-18 15:38] LABS: Appearance Urine UA Slightly Cloudy; pH Urine UA 6.5 (4.5-8.0)
[2022-10-18 15:48] LABS: Amorphous Sediment Urine 1+; Bacteria Urine Moderate (10-30); Mucus Urine 1+ (Negative); RBC Urine None Seen (0-5/HPF); Squamous Epithelial Cell Urine 5-10 /HPF (0-5/HPF); WBC Urine 5-10/HPF (0-5/HPF)
[2022-10-19 16:38] LABS: HIV 1 & 2 Ab/Ag 4th Gen Combo NEGATIVE (NEGATIVE); Hep C Virus Ab w/Reflex Quant NEGATIVE s/c (NEGATIVE); Hepatitis B Surface Antigen NEGATIVE s/c (NEGATIVE)
[2022-10-20 03:38] LABS: RPR Screen Non Reactive (Non Reactive)
[2022-10-20 09:36] LABS: Varicella IgG Antibody 755 index (Immune >165)
== END ==
PROVIDERS: Referring Provider Family Medicine; Visit Provider Family Medicine
DX: Z34.81 Encounter for supervision of other normal pregnancy, first trimester (principal)
CPT/HCPCS: 36415; 80055; 81003; 81015; 86787; 86803; 86850; 86900; 86901; 87077; 87086; 87147; 87389

== ENCOUNTER → 2022-11-20 16:48 | Outpatient (CLI) | payer OTHER, SELFPAY ==
[2022-11-20 18:16] LABS: Alanine Aminotransferase 24 IU/L (<35); Albumin 3.8 g/dL (3.5-5.0); Albumin Globulin Ratio 1.1 (1.0-2.8); Alkaline Phosphatase 100 U/L (38-126); Aspartate Aminotransferase 26 IU/L (14-36); BUN Creatinine Ratio 8.3 (6-22); Bilirubin Total 0.3 mg/dL (0.2-1.3); Blood Urea Nitrogen 4 mg/dL (7-17); Calcium 8.7 mg/dL (8.4-10.2); Carbon Dioxide 23 mmol/L (22-32); Chloride 104 mmol/L (98-107); Estimated Glomerular Filt Rate > 60 mL/min (>60); Globulin 3.6 g/dL (1.7-4.1); Glucose 86 mg/dL (70-100); HEMOLYSIS < 15 (0-50); Potassium 3.4 mmol/L (3.4-5.1); Sodium 135 mmol/L (137-145); Total Protein 7.4 g/dL (6.3-8.2)
[2022-11-24 13:28] LABS: Bile Acids 4.1 umol/L (0.0-10.0)
[2022-11-26 19:36] LABS: AFP, Serum 38.9 ng/mL (.); Estriol, Free 1.35 ng/mL (.); Inhibin A, Dimeric 89.65 pg/mL (.); Inhibin A, MoM 0.66 (.); Maternal Ethnicity Other (.); Maternal Weight 204 lbs (.); Number of Fetuses No (.); OSBR Risk 1 IN 2734 (.); Results Report (.); Test Results *Screen Negative* (.); hCG, MoM 0.37 (.); hCG, Serum 15737 mIU/mL (.)
== END ==
PROVIDERS: Referring Provider Family Medicine; Visit Provider Family Medicine
DX: L29.9 Pruritus, unspecified (principal); O99.719 Diseases of the skin and subcutaneous tissue complicating pregnancy, unspecified trimester; Z3A.18 18 weeks gestation of pregnancy
CPT/HCPCS: 36415; 80053; 82105; 82239; 82677; 84702; 86336

== ENCOUNTER → 2022-12-20 10:20 | Outpatient (CLI) | payer OTHER, SELFPAY ==
--- NOTE | 2022-12-20 10:20 | DI.US.S_ITS ---
PROCEDURE: US OB >= 14 WEEKS FETUS INDICATIONS: ANATOMY OUTSIDE/PRIOR DATING DATA: Last menstrual period (LMP): 07/11/2022. LMP-based estimated date of delivery (JOSE): 04/18/2023. First dating scan (date and location): 09/17/2022. Estimated date of delivery (JOSE) from first dating scan: 04/29/2023. The calculations are made using the ultrasound JOSE of 04/29/2023. TECHNIQUE: Real-time scanning was performed of the fetus, with image documentation and biometric measurements. COMPARISON: [facility], OB >= 14 WEEKS FETUS, 04/20/2021, 12:18. FINDINGS: General: A single living intrauterine gestation is present. Presentation: Vertex. Placenta: Placental position is anterior, without previa. Placental Garibay at the superior lateral margin measuring 4.2 x 2.6 x 1.8 cm. Amniotic fluid index: 14.8 cm, normal range is 5-24 cm. Single deepest vertical pocket is 5.7 cm. heart rate: 140 beats per minute. Maternal cervical canal: 4.9 cm long. Normal lower limit is 2.5 cm. biometrics: Biparietal diameter: 5.1 cm, 21 weeks 3 days Head circumference: 19.8 cm, 22 weeks 0 days Abdominal circumference: 17.3 cm, 22 weeks 1 day Femur length: 3.5 cm, 21 weeks 1 day Clinically estimated gestational age: 21 weeks 3 days Composite gestational age from present scan: 21 weeks 5 days Estimated weight and percentile: 446 g, 61st percentile Anatomic survey: Neuro: Ventricles are non-dilated at less than 10 mm. Cisterna magna is normal at 3-11 mm. Cerebellum is normal in size and morphology. Nuchal skin fold: Normal at less than 6 mm between 14-21 weeks gestational age. Face: Nose and lips, facial profile are normal. Spine: No evidence for spina bifida. Heart: 4-chambered heart is present, with normal ventricular outflow tracts. Left ventricle echogenic focus measuring 3 mm. Diaphragm: Diaphragm is intact. Stomach: Left-sided stomach is present. Kidneys: Right renal pelvis measures 3.8 mm. Left renal pelvis measures 4.3 mm. Normal is less than 5 mm in 2nd trimester, less than 7 mm in 3rd trimester. Cord: 3-vessel cord has orthotopic insertion. Bladder: Normal in size. Extremities: All 4 extremities identified. IMPRESSION: 1. [place] living intrauterine at 21 weeks 5 days based on today's ultrasound. Fetus is in the 61st percentile for weight. 2. Normal placenta and amniotic fluid. 3. Left ventricle echogenic focus incidentally noted. A soft marker for aneuploidy but in the absence of other abnormalities this is likely normal. Otherwise normal and complete anatomic survey. We strive to produce accurate, complete, and clear reports of imaging services. To assist us in improving patient care, this report was composed using standard report templates and voice recognition software. Therefore, it may contain abnormal punctuation, insertions and/or omissions. Occasional wrong-word or sound-alike substitutions may occur. Though we review the report and make efforts to correct it, we do recommend that the report be read carefully in proper context to recognize any text inaccuracies. Dictated by: Alex Montanez M.D. on 12/20/2022 at 12:09 Approved by: Alex Montanez M.D. on 12/20/2022 at 12:17
== END ==
PROVIDERS: Referring Provider Family Medicine; Visit Provider Family Medicine
DX: O26.892 Other specified pregnancy related conditions, second trimester (principal); N89.8 Other specified noninflammatory disorders of vagina; Z3A.21 21 weeks gestation of pregnancy
CPT/HCPCS: 76811; 87210

== ENCOUNTER → 2022-12-20 12:24 | Outpatient (CLI) | payer OTHER, SELFPAY | PROVIDERS: Visit Provider Family Medicine | DX: O26.892 Other specified pregnancy related conditions, second trimester (principal); N89.8 Other specified noninflammatory disorders of vagina | CPT/HCPCS: 87210 ==

== ENCOUNTER → 2023-02-19 16:44 | Outpatient (CLI) | payer OTHER, SELFPAY ==
[2023-02-19 17:59] LABS: Add Manual Diff / Slide Review NO; Basophils Absolute Auto 100 /uL (0-100); Basophils Percent Auto 0.5 % (0-2); Eosinophils Absolute Auto 100 /uL (0-450); Eosinophils Percent Auto 0.9 % (2-4); Hemoglobin 11.7 g/dL (12.0-16.0); Lymphocytes Absolute Auto 2500 /uL (1100-4500); Lymphocytes Percent Auto 21.9 % (25-40); Mean Corpuscular HGB Conc 33.5 % (30-36); Mean Corpuscular Hemoglobin 29.6 PG (26-34); Mean Corpuscular Volume 88.4 fL (80-100); Monocytes Absolute Auto 500 /uL (0-900); Monocytes Percent Auto 4.3 % (3-14); Neutrophils Absolute Auto 8400 /uL (1500-7000); Neutrophils Percent Auto 72.4 % (50-75); Platelet Count 302 X10^3/uL (150-400); Red Blood Cell Count 3.96 X10^6/uL (4.0-5.2); White Blood Cell Count 11.6 X10^3/uL (4.5-11.0)
[2023-02-19 18:08] LABS: GTT (PREG) 1 Hour PP 50gm Dose 113 mg/dL (76-139)
== END ==
PROVIDERS: PCP Family Medicine; Referring Provider Family Medicine; Visit Provider Family Medicine
DX: Z34.82 Encounter for supervision of other normal pregnancy, second trimester (principal); Z3A.26 26 weeks gestation of pregnancy
CPT/HCPCS: 36415; 82950; 85025

== ENCOUNTER → 2023-03-17 16:30 | Outpatient (CLI) | payer OTHER, SELFPAY ==
[2023-03-19 09:40] LABS: Bile Acids 17.9 umol/L (0.0-10.0)
== END ==
PROVIDERS: PCP Family Medicine; Referring Provider Family Medicine; Visit Provider Family Medicine
DX: L29.9 Pruritus, unspecified (principal)
CPT/HCPCS: 36415; 82239

== ENCOUNTER → 2023-03-21 16:47 | Outpatient (CLI) | payer OTHER, SELFPAY ==
[2023-03-21 18:22] LABS: Alanine Aminotransferase 368 IU/L (<35); Albumin 3.4 g/dL (3.5-5.0); Alkaline Phosphatase 317 U/L (38-126); Aspartate Aminotransferase 229 IU/L (14-36); BUN Creatinine Ratio 10.6 (6-22); Bilirubin Total 0.5 mg/dL (0.2-1.3); Blood Urea Nitrogen 5 mg/dL (7-17); Calcium 8.9 mg/dL (8.4-10.2); Carbon Dioxide 20 mmol/L (22-32); Chloride 103 mmol/L (98-107); Estimated Glomerular Filt Rate > 60 mL/min (>60); Globulin 3.3 g/dL (1.7-4.1); Glucose 77 mg/dL (70-100); HEMOLYSIS < 15 (0-50); Sodium 134 mmol/L (137-145); Total Protein 6.7 g/dL (6.3-8.2)
== END ==
PROVIDERS: PCP Family Medicine; Referring Provider Family Medicine; Visit Provider Family Medicine
DX: O26.613 Liver and biliary tract disorders in pregnancy, third trimester (principal); K83.1 Obstruction of bile duct; Z3A.00 Weeks of gestation of pregnancy not specified
CPT/HCPCS: 36415; 80053

== ENCOUNTER 2023-03-21 16:48 | Outpatient (CLI) | payer OTHER, SELFPAY ==
--- NOTE | 2023-03-21 17:40 | PM.OBTRLD ---
Visit Information Visit Information Date of evaluation: 03/21/23 Primary OB Provider: Belén Love On-call OB Provider: Nicole Kinney Reason for Evaluation: Yes non-stress test non-stress test reason: other (Increased bile acids) Vital Signs Vital Signs: Blood pressure 115/65, pulse 68 PFSH Medical History Eczema (~08/2019) Left hip pain (~2004) Left wrist fracture (~2010) Mitral valve prolapse (~2011) (~11/2020) Pulmonary hypertension (~2011) Right hip pain (~2004) Scoliosis (~2008) Surgical History History of tonsillectomy and adenoidectomy (~2002) [place] teeth extracted Family History Mother Cellulitis and abscess of leg Osteoarthritis Father Sleep apnea Hearing loss Asthma Grandmother Diabetes mellitus Cirrhosis of liver Grandfather Family estrangement Grandmother H/O: hysterectomy Pelvic prolapse Latent tuberculosis Grandfather Diabetes mellitus Liver failure Tuberculosis Brother Diabetes mellitus Obesity Social History marital status: number of children: 0 household members: spouse and children lives independently: Yes caregiver/support person: Yes housing: house pets and animals: Yes (2 dogs: safe & aware. ) education level: college (mauri's degree) occupational status: employed current occupational exposures/hazards: No raphael/rastafarian: Oriental Orthodox special raphael needs: No travel history: recent (domestic only) seatbelt use: always water heater temp set < 120 deg: Yes working smoke detector in home: Yes fire extinguisher in home: Yes carbon monox detector in home: Yes firearms in home: Yes firearms unloaded and locked: Yes do you feel safe at home: Yes Smoking Status: Former smoker (occasional social smoker, quit several years ago) second hand exposure: No alcohol intake: former (rarely when not ) substance use type: does not use during the past year weight has: remained stable well-balanced diet: daily or most days daily servings fruits/ve-4 caffeine: No Type(s) of exercise: regular exercise and running frequency: 3-4 times per week (2-3) Evaluation Evaluation Baseline heart rate: 125 Variability: Moderate (11-25) monitor accelerations: Present Monitor Decelerations: Absent Contraction Frequency (minutes): 0 Category of Tracing: Reactive Status: Category l Diagnosis, Plan/Disposition Final Diagnosis (1) Cholestasis during in third trimester: Status: Acute (2) Encounter for supervision of other normal , third trimester: Status: Acute (3) 34 weeks gestation of : Status: Acute Plan/Disposition Plan: Reactive nonstress test. Follow-up with primary OB provider as scheduled. OB Disposition: home
== END 2023-03-21 17:45 | disposition home or self-care (01) ==
LOC: LABOR 16:55 → OB 03-31 06:29
PROVIDERS: PCP Family Medicine; Referring Provider Family Medicine; Visit Provider Family Medicine
DX: O26.613 Liver and biliary tract disorders in pregnancy, third trimester (principal); K83.1 Obstruction of bile duct; Z3A.34 34 weeks gestation of pregnancy
CPT/HCPCS: 36415; 59025; 80053; G0378; G0379

== ENCOUNTER → 2023-03-25 16:45 | Outpatient (CLI) | payer OTHER, SELFPAY ==
[2023-03-25 17:51] LABS: Alanine Aminotransferase 147 IU/L (<35); Albumin 3.5 g/dL (3.5-5.0); Albumin Globulin Ratio 0.9 (1.0-2.8); Alkaline Phosphatase 263 U/L (38-126); Aspartate Aminotransferase 67 IU/L (14-36); BUN Creatinine Ratio 13.3 (6-22); Bilirubin Total 0.5 mg/dL (0.2-1.3); Blood Urea Nitrogen 6 mg/dL (7-17); Calcium 8.5 mg/dL (8.4-10.2); Carbon Dioxide 20 mmol/L (22-32); Chloride 103 mmol/L (98-107); Estimated Glomerular Filt Rate > 60 mL/min (>60); Globulin 3.7 g/dL (1.7-4.1); Glucose 113 mg/dL (70-100); HEMOLYSIS < 15 (0-50); Potassium 3.5 mmol/L (3.4-5.1); Sodium 132 mmol/L (137-145); Total Protein 7.2 g/dL (6.3-8.2)
[2023-03-26 13:04] LABS: Bile Acids 19.3 umol/L (0.0-10.0)
== END ==
PROVIDERS: PCP Family Medicine; Referring Provider Family Medicine; Visit Provider Family Medicine
DX: O26.613 Liver and biliary tract disorders in pregnancy, third trimester (principal); K83.1 Obstruction of bile duct
CPT/HCPCS: 36415; 80053; 82239

== ENCOUNTER 2023-03-25 16:46 | Outpatient (CLI) | payer OTHER, SELFPAY | END 2023-03-25 17:58 | disposition home or self-care (01) | LOC: OB 03-31 06:31 | PROVIDERS: PCP Family Medicine; Referring Provider Family Medicine; Visit Provider Family Medicine | DX: O26.893 Other specified pregnancy related conditions, third trimester (principal); Z3A.35 35 weeks gestation of pregnancy; O26.613 Liver and biliary tract disorders in pregnancy, third trimester; K83.1 Obstruction of bile duct | CPT/HCPCS: 36415; 59025; 80053; 82239; G0378; G0379 ==

== ENCOUNTER 2023-03-28 15:42 | Outpatient (CLI) | payer OTHER, SELFPAY | END 2023-03-28 16:25 | disposition home or self-care (01) | LOC: OB 03-31 06:35 | PROVIDERS: PCP Family Medicine; Referring Provider Family Medicine; Visit Provider Family Medicine | DX: O26.893 Other specified pregnancy related conditions, third trimester (principal); Z3A.35 35 weeks gestation of pregnancy | CPT/HCPCS: 59025; G0378; G0379 ==

== ENCOUNTER → 2023-04-01 17:35 | Outpatient (CLI) | payer OTHER, SELFPAY ==
[2023-04-01 18:30] LABS: Alanine Aminotransferase 54 IU/L (<35); Albumin 3.4 g/dL (3.5-5.0); Albumin Globulin Ratio 0.9 (1.0-2.8); Alkaline Phosphatase 229 U/L (38-126); Aspartate Aminotransferase 41 IU/L (14-36); BUN Creatinine Ratio 8.9 (6-22); Bilirubin Total 0.4 mg/dL (0.2-1.3); Blood Urea Nitrogen 4 mg/dL (7-17); Calcium 8.4 mg/dL (8.4-10.2); Carbon Dioxide 22 mmol/L (22-32); Chloride 105 mmol/L (98-107); Estimated Glomerular Filt Rate > 60 mL/min (>60); Globulin 3.7 g/dL (1.7-4.1); Glucose 133 mg/dL (70-100); HEMOLYSIS < 15 (0-50); Potassium 3.4 mmol/L (3.4-5.1); Sodium 135 mmol/L (137-145); Total Protein 7.1 g/dL (6.3-8.2)
[2023-04-02 10:38] LABS: Bile Acids 13.4 umol/L (0.0-10.0)
== END ==
PROVIDERS: PCP Family Medicine; Referring Provider Family Medicine; Visit Provider Family Medicine
DX: O26.613 Liver and biliary tract disorders in pregnancy, third trimester (principal); K83.1 Obstruction of bile duct
CPT/HCPCS: 36415; 80053; 82239

== ENCOUNTER 2023-04-01 17:37 | Outpatient (CLI) | payer OTHER, SELFPAY | END 2023-04-01 18:30 | disposition home or self-care (01) | LOC: OB 04-03 15:03 | PROVIDERS: PCP Family Medicine; Referring Provider Family Medicine; Visit Provider Family Medicine | DX: O26.613 Liver and biliary tract disorders in pregnancy, third trimester (principal); Z3A.36 36 weeks gestation of pregnancy; K83.1 Obstruction of bile duct | CPT/HCPCS: 36415; 59025; 80053; 82239; G0378; G0379 ==

== ENCOUNTER → 2023-04-04 15:45 | Outpatient (CLI) | payer OTHER, SELFPAY ==
[2023-04-05 13:26] LABS: Strep Grp B PCR POS for Grp B Strep
== END ==
PROVIDERS: PCP Family Medicine; Referring Provider Family Medicine; Visit Provider Family Medicine
DX: Z34.83 Encounter for supervision of other normal pregnancy, third trimester (principal); Z3A.36 36 weeks gestation of pregnancy
CPT/HCPCS: 87653

== ENCOUNTER 2023-04-04 15:57 | Outpatient (CLI) | payer OTHER, SELFPAY ==
--- NOTE | 2023-04-04 16:13 | PM.OBTRLD ---
Visit Information Visit Information Date of evaluation: 04/04/23 Primary OB Provider: Belén Love Comments/Additional reasons for admission: 27yo at 36w3d here for NST for cholestasis of . She is feeling her baby move regularly. [facility] Medical History (Updated 03/28/23 @ 14:14 by Belén Love MD) Eczema (~08/2019) History of cholestasis during Left hip pain (~2004) Left wrist fracture (~2010) Mitral valve prolapse (~2011) (~11/2020) Pulmonary hypertension (~2011) Right hip pain (~2004) Scoliosis (~2008) Surgical History History of tonsillectomy and adenoidectomy (~2002) [place] teeth extracted Family History Mother Cellulitis and abscess of leg Osteoarthritis Father Sleep apnea Hearing loss Asthma Grandmother Diabetes mellitus Cirrhosis of liver Grandfather Family estrangement Grandmother H/O: hysterectomy Pelvic prolapse Latent tuberculosis Grandfather Diabetes mellitus Liver failure Tuberculosis Brother Diabetes mellitus Obesity Social History marital status: number of children: 0 household members: spouse and children lives independently: Yes caregiver/support person: Yes housing: house pets and animals: Yes (2 dogs: safe & aware. ) education level: college (mauri's degree) occupational status: employed current occupational exposures/hazards: No raphael/mormonism: Zoroastrianism special raphael needs: No travel history: recent (domestic only) seatbelt use: always water heater temp set < 120 deg: Yes working smoke detector in home: Yes fire extinguisher in home: Yes carbon monox detector in home: Yes firearms in home: Yes firearms unloaded and locked: Yes do you feel safe at home: Yes Smoking Status: Former smoker (occasional social smoker, quit several years ago) second hand exposure: No alcohol intake: former (rarely when not ) substance use type: does not use during the past year weight has: remained stable well-balanced diet: daily or most days daily servings fruits/ve-4 caffeine: No Type(s) of exercise: regular exercise and running frequency: 3-4 times per week (2-3) Evaluation Evaluation Baseline heart rate: 130 Variability: Moderate (11-25) monitor accelerations: Present Monitor Decelerations: Absent Category of Tracing: Reactive Diagnosis, Plan/Disposition Final Diagnosis (1) Cholestasis during in third trimester: Status: Acute Plan/Disposition Plan: 27yo at 36w3d here for NST for cholestasis of . NST reactive. IOL scheduled for 37wks. OB Disposition: home
== END 2023-04-04 17:18 | disposition home or self-care (01) ==
LOC: LABOR 16:31 → OB 04-07 10:40
PROVIDERS: PCP Family Medicine; Referring Provider Family Medicine; Visit Provider Family Medicine
DX: O26.613 Liver and biliary tract disorders in pregnancy, third trimester (principal); Z3A.36 36 weeks gestation of pregnancy; Z34.83 Encounter for supervision of other normal pregnancy, third trimester
CPT/HCPCS: 59025; 87653; G0378; G0379

== ENCOUNTER 2023-04-07 19:46 | Inpatient (IN) | payer OTHER, SELFPAY ==
[2023-04-07 20:26] VITALS: BP 115/70
[2023-04-07] MEDS: DINOPROSTONE VAG (CERVIDIL) 10 MG VAG (20:34)
[2023-04-07 21:20] LABS: Add Manual Diff / Slide Review NO; Basophils Absolute Auto 100 /uL (0-100); Basophils Percent Auto 1.1 % (0-2); Eosinophils Absolute Auto 100 /uL (0-450); Eosinophils Percent Auto 0.8 % (2-4); Hematocrit 34.5 % (36-46); Hemoglobin 11.6 g/dL (12.0-16.0); Lymphocytes Absolute Auto 3200 /uL (1100-4500); Lymphocytes Percent Auto 23.8 % (25-40); Mean Corpuscular HGB Conc 33.6 % (30-36); Mean Corpuscular Hemoglobin 30.1 PG (26-34); Mean Corpuscular Volume 89.5 fL (80-100); Monocytes Absolute Auto 700 /uL (0-900); Monocytes Percent Auto 5.1 % (3-14); Neutrophils Absolute Auto 9200 /uL (1500-7000); Neutrophils Percent Auto 69.2 % (50-75); Platelet Count 303 X10^3/uL (150-400); Red Blood Cell Count 3.86 X10^6/uL (4.0-5.2); Red Cell Distribution Width 14.8 % (11.6-14.8); White Blood Cell Count 13.3 X10^3/uL (4.5-11.0)
[2023-04-07 21:26] LABS: Alanine Aminotransferase 45 IU/L (<35); Albumin 3.5 g/dL (3.5-5.0); Albumin Globulin Ratio 0.9 (1.0-2.8); Alkaline Phosphatase 228 U/L (38-126); Aspartate Aminotransferase 41 IU/L (14-36); BUN Creatinine Ratio 15.5 (6-22); Bilirubin Total 0.4 mg/dL (0.2-1.3); Blood Urea Nitrogen 9 mg/dL (7-17); Calcium 8.8 mg/dL (8.4-10.2); Carbon Dioxide 22 mmol/L (22-32); Chloride 105 mmol/L (98-107); Estimated Glomerular Filt Rate > 60 mL/min (>60); Globulin 3.8 g/dL (1.7-4.1); Glucose 84 mg/dL (70-100); HEMOLYSIS 19 (0-50); Potassium 3.7 mmol/L (3.4-5.1); Sodium 133 mmol/L (137-145); Total Protein 7.3 g/dL (6.3-8.2)
--- NOTE | 2023-04-08 08:02 | P.HPOB_ITS ---
OB HPI Date/Time Date of admission: 04/08/23 History of Present Condition Chief complaint: Labor JOSE Calculator Estimated Delivery Date Method Current WG Current Estimate 04/29/23 Manual 37w 0d Final JOSE - YING Other Estimates 04/18/23 LMP (Certain) 38w 4d 04/29/23 Ultrasound #1 37w 0d Estimated Gestational Age (weeks): 37w0d : 2 Para: 1 Narrative: 27yo at 37w0d here for IOL for cholestasis of . The pt denies any vaginal bleeding, contractions, or LOF prior to presentation. She is feeling her baby move regularly. The pt pt was diagnosed with cholestasis of at 33w6d with elevated bile acids and liver enzymes. Her liver enzymes have trended down since then, but remain elevated above normal. The pt was started on Ursodiol at the time of diagnosis, with improvement in her itching symptoms. Her was also complicated by an EIF seen on anatomy u/s, with negative cfDNA testing. care: good care, initiated at week # (8) and pounds weight gain (18) Dating criteria OB: based on 1st trimester US only Ultrasounds: normal 1st trimester US and abnormal US findings (EIF) Medical complications OB: none Indications Indication for induction OB: other (cholestasis of ) Preadmission Labs Last OB Lab Results: Blood Type O Positive 04/07/23 19:53 Antibody Screen Negative 04/07/23 19:53 Hematocrit 34.5 % (36-46) L 04/07/23 19:53 Hemoglobin 11.6 g/dL (12.0-16.0) L 04/07/23 19:53 Hepatitis B Surface Antigen Negative s/c (NEGATIVE) 10/18/22 15 :11 Hepatitis C Antibody Negative s/c (NEGATIVE) 10/18/22 15:11 Rubella Antibody 107.0 IU/mL (>15) 10/18/22 15:11 Varicella-Zoster IgG Antibody 755 index (Immune >165) 10/18/22 15:11 Glucose 1 Hour 113 mg/dL (76-139) 02/19/23 16:47 Group B Streptococcus (PCR) Pos for grp b strep H 04/04/23 15:4 5 -: Urine: positive (GBS) Genetic Screens: Quad screen: Normal and Cell-free DNA: Normal External Labs -: Urine: positive (GBS) Prior (ies) Past Pregnancies Del. Date GA/Weeks Labor Lgth Wt Sex Route Outcome Anesthesia Place Delv Breastfeed Preg Comp Name 08/16/21 37 8 6 lb 3 oz Female vacuum live - full term IH 3 months other [place] Delivery Date: 08/16/21 Last Updated by: Rosita Butterfield RN Induced @37 wk for cholestasis Evaluation Evaluation Baseline heart rate: 120 Variability: Moderate (11-25) monitor accelerations: Present Monitor Decelerations: Absent Contraction Frequency (minutes): 5 Uterine Contraction Intensity: Mild Status: Category l Dilation (cm): 1 Effacement (%): 50 Dilation: 1-2 cm Effacement: 40-50% station: -4 Position of cervix: posterior Consistency: medium Abrams score: 3 PFSH Medical History (Updated 03/28/23 @ 14:14 by Belén Love MD) Eczema (~08/2019) History of cholestasis during Left hip pain (~2004) Left wrist fracture (~2010) Mitral valve prolapse (~2011) (~11/2020) Pulmonary hypertension (~2011) Right hip pain (~2004) Scoliosis (~2008) Surgical History History of tonsillectomy and adenoidectomy (~2002) [place] teeth extracted Family History Mother Cellulitis and abscess of leg Osteoarthritis Father Sleep apnea Hearing loss Asthma Grandmother Diabetes mellitus Cirrhosis of liver Grandfather Family estrangement Grandmother H/O: hysterectomy Pelvic prolapse Latent tuberculosis Grandfather Diabetes mellitus Liver failure Tuberculosis Brother Diabetes mellitus Obesity Social History marital status: number of children: 0 household members: spouse and children lives independently: Yes caregiver/support person: Yes housing: house pets and animals: Yes (2 dogs: safe & aware. ) education level: college (mauri's degree) occupational status: employed current occupational exposures/hazards: No raphael/jainism: Confucianist special raphael needs: No travel history: recent (domestic only) seatbelt use: always water heater temp set < 120 deg: Yes working smoke detector in home: Yes fire extinguisher in home: Yes carbon monox detector in home: Yes firearms in home: Yes firearms unloaded and locked: Yes do you feel safe at home: Yes Smoking Status: Never smoker second hand exposure: No alcohol intake: former (rarely when not ) substance use type: does not use during the past year weight has: remained stable well-balanced diet: daily or most days daily servings fruits/ve-4 caffeine: No Type(s) of exercise: regular exercise and running frequency: 3-4 times per week (2-3) Meds Home Medications and Allergies Home Medications Medication Instructions Recorded Confirmed Type prenat.vits,hannah,[id number] 1 tab PO DAILY #30 tabs 01/23/23 04/07/23 Rx ursodiol 300 mg capsule 300 mg PO TID #90 caps 03/24/23 04/07/23 Rx valacyclovir 500 mg tablet 500 mg PO BID #60 tabs 03/28/23 04/07/23 Rx Benadryl 25 mg PO BEDTIME PRN Itching 04/07/23 04/07/23 History clobetasol 0.05 % topical ointment 1 applic topical DAILY 04/07/23 04/07/23 History halobetasol propionate 0.05 % 1 applic topical DAILY 04/07/23 04/07/23 History topical ointment Allergies Allergy/AdvReac Type Severity Reaction Status Date / Time No Known Drug Allergies Allergy Verified 04/07/23 20:25 OB Exam Narrative Exam Narrative: Gen: NAD, sitting comfortably in bed, appears well CV: RRR, no murmurs Resp: clear to auscultation bilaterally Abd: soft, nontender, gravid Ext: no edema Objective Labs 04/07/23 19:53 04/07/23 Unknown Labs: Laboratory Results - last 24 hr 04/07/23 04/07/23 04/07/23 19:53 19:53 Unknown WBC 13.3 H RBC 3.86 L Hgb 11.6 L Hct 34.5 L MCV 89.5 MCH 30.1 MCHC 33.6 RDW 14.8 Plt Count 303 Neut % (Auto) 69.2 Lymph % (Auto) 23.8 L [place] % (Auto) 5.1 Eos % (Auto) 0.8 L Baso % (Auto) 1.1 Neut # (Auto) 9200 H Lymph # (Auto) 3200 [place] # (Auto) 700 Eos # (Auto) 100 Baso # (Auto) 100 Sodium 133 L Potassium 3.7 Chloride 105 Carbon Dioxide 22 BUN 9 Creatinine 0.58 Estimated GFR > 60 BUN/Creatinine Ratio 15.5 Glucose 84 Calcium 8.8 Total Bilirubin 0.4 AST 41 H ALT 45 H Alkaline Phosphatase 228 H Total Protein 7.3 Albumin 3.5 Globulin 3.8 Albumin/Globulin Ratio 0.9 L Blood Type O Positive Antibody Screen Negative Assessment and Plan Assessment and Plan Assessment and Plan narrative: 27yo at 37w0d here for IOL for cholestasis of . Pt noted to have elevated liver enzymes related to her cholestasis as well, currently stable. GBS positive, Rh positive. Pt received Cervidil overnight, Abrams score currently 3. - Expectant management, anticipate - FHT reassuring - GBS positive, will initiate ampicillin when in active labor - Epidural desired for pain control later - Due to low Abrams score, after informed consent, romero catheter placed and inflated with 60cc of NS. Gentle traction then applied.
[2023-04-08] MEDS: LACTATED RINGERS 1,000 ML 100 ML IV ×2 (09:15→18:57)
[2023-04-08] MEDS: OXYTOCIN PREMIX 30 UNIT/500 ML PLAST..BAG IV (09:25)
[2023-04-08] MEDS: AMPICILLIN 2,000 MG in SODIUM CHLORIDE 0.9% 100 ML 200 MG IV (11:56)
--- NOTE | 2023-04-08 12:24 | PM.OBPNLAB ---
Date/Time Date Patient Seen: 04/08/23 Time Patient Seen: 12:24 Pain Control Pain control: tolerating well Pelvic Exam Dilation (cm): 3 Effacement (%): 50 station: -4 Amniotic membrane status: Intact Contractions Pitocin rate (mU/min): 4 Contraction frequency (min): 3 Status status: Category l Heart Rate Baseline: 120 Monitor Accelerations: Present Monitor Decelerations: Absent Monitor Variability: Moderate Assessment and Plan Comments: 27yo at 37w0d here for IOL for cholestasis of .? Pt noted to have elevated liver enzymes related to her cholestasis as well, currently stable.? GBS positive, Rh positive.? Pt received Cervidil overnight, Abrams score was 3. Romero catheter was placed, fell out approximately 3hrs later. station remains very high, confirmed vertex by bedside u/s prior to placement of romero catheter. - Expectant management, anticipate - FHT reassuring - GBS positive, start ampicillin prophylaxis now - Epidural desired for pain control later - Continue pitocin, titrate as tolerated to regular painful contractions
[2023-04-08] MEDS: AMPICILLIN 1,000 MG in SODIUM CHLORIDE 0.9% 100 ML 200 MG IV ×3 (15:43→23:58)
--- NOTE | 2023-04-08 15:44 | PM.OBPNLAB ---
Date/Time Date Patient Seen: 04/08/23 Pain Control Pain control: tolerating well Pelvic Exam Dilation (cm): 3 Effacement (%): 50 station: -4 Amniotic membrane status: Intact Contractions Monitor mode: External Pitocin rate (mU/min): 10 Contraction frequency (min): 3 Contraction intensity: Mild Status status: Category l Heart Rate Baseline: 120 Monitor Accelerations: Present Monitor Decelerations: Absent Monitor Variability: Moderate Assessment and Plan Comments: 27yo at 37w0d here for IOL for cholestasis of .? Pt noted to have elevated liver enzymes related to her cholestasis as well, currently stable.? GBS positive, Rh positive.? Pt received Cervidil overnight, Abrams score was 3.? Romero catheter was placed, fell out approximately 3hrs later.? station remains very high, confirmed vertex by bedside u/s prior to placement of romero catheter. No significant cervical change yet, unable to AROM as station is too high. Will continue to titrate up pitocin. GBS prophylaxis adequate.
[2023-04-09] MEDS: ONDANSETRON 4 MG/2 ML INJ IV (01:57)
[2023-04-09] MEDS: AMPICILLIN 1,000 MG in SODIUM CHLORIDE 0.9% 100 ML 200 MG IV ×2 (03:57→07:50)
[2023-04-09] MEDS: LACTATED RINGERS 1,000 ML 100 ML IV ×2 (06:21→08:34)
--- NOTE | 2023-04-09 08:27 | PM.OBPNLAB ---
Date/Time Date Patient Seen: 04/09/23 Pelvic Exam Dilation (cm): 5 Effacement (%): 80 station: -2 Amniotic membrane status: Ruptured Comments: After informed consent, AROM performed with production of clear fluid Contractions Monitor mode: External Pitocin rate (mU/min): 11 Contraction frequency (min): 2 Contraction pattern: Regular Contraction intensity: Strong/Firm Status status: Category l Heart Rate Baseline: 120 Monitor Accelerations: Present Monitor Decelerations: Absent Monitor Variability: Moderate Assessment and Plan Comments: 27yo at 37w0d here for IOL for cholestasis of .? Pt noted to have elevated liver enzymes related to her cholestasis as well, currently stable.? GBS positive, Rh positive.? Pt received Cervidil initially, Abrams score was 3.? Harris catheter was placed, fell out approximately 3hrs later.? Pt on pitocin overnight, now with some descent. Was able to safely AROM with production of clear fluid, pt with adequate GBS prophylaxis. Will continue with pitocin, titrating as tolerated. Pt will trial nitrous for pain control and if not effective plans on epidural.
--- NOTE | 2023-04-09 08:34 | P.PCN_ITS ---
[facility] Pre-procedure PMH/ROS narrative: Induction , 37wk, d/t cholestasis, h/o scoliosis, MV prolapse (PCP following) no intervention/meds. 09/06 HSM noted. ASA Class: II Labs: Hct 34.5 % (36-46) L 04/07/23 19:53 Plt Count 303 X10^3/uL (150-400) 04/07/23 19:53 Medications: Current Medications Generic Name Dose Route Start Last Admin Trade Name Freq PRN Reason Stop Dose Admin Calcium Carbonate 1,000 mg 04/07/23 19:53 Calcium Carbonate 500 Mg Tab PO Q4HR PRN Dyspepsia Carboprost Tromethamine 250 mcg 04/07/23 19:53 Carboprost 250 Mcg/Ml Ampul IM Q90M PRN Bleeding Fentanyl 50 mcg 04/07/23 19:53 Fentanyl 100 Mcg/2 Ml Inj IV Q1H PRN Pain, Moderate (4-6) Ampicillin Sodium 1,000 mg/ 100 mls @ 200 mls/hr 04/08/23 00:00 04/09/23 07:50 Sodium Chloride IV 200 mls/hr Q4H RADHA Administration Oxytocin/Lactated Ringer's 30 unit in 500 mls @ 200 mls/hr 04/07/23 19:53 Oxytocin Premix IV CONT PRN Bleeding Protocol Oxytocin/Lactated Ringer's 30 unit in 500 mls @ 2 mls/hr 04/07/23 20:00 04/08/23 09:25 Oxytocin Premix IV 2 milliunit/min TITRATE RADHA 2 mls/hr Administration Protocol 2 MILLIUNIT/MIN Lactated Ringer's 1,000 mls @ 100 mls/hr 04/07/23 20:00 04/09/23 08:34 Lactated Ringers IV 100 mls/hr CONT RADHA Administration Tranexamic Acid 1,000 mg/ 100 mls @ 200 mls/hr 04/07/23 19:53 Sodium Chloride IV NOW PRN Bleeding Lidocaine HCl 20 ml 04/07/23 19:53 Lidocaine 1% 20 Ml INJ INTRA-OP PRN Post Delivery Methylergonovine Maleate 0.2 mg 04/07/23 19:53 Methylergonovine 0.2 Mg Tablet PO Q6HR PRN Heavy Bleeding Methylergonovine Maleate 0.2 mg 04/07/23 19:53 Methylergonovine 0.2 Mg/Ml Vial IM NOW PRN Bleeding Misoprostol 400 mcg 04/07/23 19:53 Misoprostol 200 Mcg Tablet SL NOW PRN Bleeding Misoprostol 800 mcg 04/07/23 19:53 Misoprostol 200 Mcg Tablet VA NOW PRN Bleeding Naloxone HCl 0.2 mg 04/07/23 19:53 Naloxone 0.4 Mg/Ml Vial IV Q2MIN PRN Opiate Reversal Ondansetron HCl 4 mg 04/07/23 19:53 04/09/23 01:57 Ondansetron 4 Mg/2 Ml Inj IV 4 mg Q4HR PRN Administration Nausea And Vomiting Oxytocin 10 unit 04/07/23 19:53 Oxytocin 10 Unit/Ml Vial IM NOW PRN Bleeding Allergies: Allergies Allergy/AdvReac Type Severity Reaction Status Date / Time No Known Drug Allergies Allergy Verified 04/07/23 20:25 Procedure Insertion date: 04/09/23 Insertion time: 08:03 Prep/Local: betadine x3 Interspace: L3-4 Patient position: sitting Needle: 17 gauge Tuohy Loss of resistance with: saline JOSE at (cm): 8 Catheter placed at SKIN (cm): 13 Catheter in SPACE (cm): 5 Sensory level: T10 Insertion: No CSF, No Blood, No Paresthesia with insertion, No Paresthesia with injection and No Test dose reaction Initial Medications TEST DOSE time: 08:02 BOLUS DOSE time: 08:05 BOLUS DOSE (mL): 8 BOLUS DOSE med: 0.25% bupivacaine (+ Fentanyl 100mcg in epidural) Infusion INFUSION: 0.125% bupivacaine and with fentanyl 2 mcg/mL Initial rate (mL/hr): 8 Subsequent interventions: dermatone T10 - pain was 10/10 before epidural , 2- 3/10 after epidural placement and bolus Post-procedure Anesthesia time START: 07:45 Anesthesia time END: 12:00 Post-procedure Anesthesia Assessment: Yes CV function: HR/BP stable, Yes Resp function: RR/sat/airway adequate, Yes Post-op hydration adequate, Yes Pain control adequate, Yes Nausea & vomiting absent, Yes Temperature > 36 C, Yes Mental status appropriate and Yes Anesthesia complications
--- NOTE | 2023-04-09 10:40 | PM.OBPRVD ---
Labor & Delivery Delivery date: 04/09/23 Cervical ripening method: per Cervidil protocol Induction method: per pitocin protocol Delivery augmentation: rupture of membranes Delivery monitor: external FHT and external uterine Route of delivery: Episiotomy description: None L&D Laceration Description: Perineal - 1st Degree Delivery repair: chromic Quantitative Blood Loss: 25 Anesthesia Type: Epidural Complications: None Narrative: PROCEDURE: at 37w0d presented for IOL for cholestasis of and was admitted to Labor and Delivery. The patient progressed through the 1st stage over 2.5 hours. She received adequate GBS prophylaxis with ampicillin. ROM occured at 7:03 with clear fluid. Pain was controlled with an epidural. The patient progressed through the 2nd stage over 20 minutes and delivered a viable female infant with APGARs 9/9 at 9:52 via without complications. The cord was cut and clamped after it stopped pulsating. The placenta delivered with gentle cord traction, and appeared complete. The perineum and vagina were inspected with 1st degree laceration repaired with 3-O Chromic. Needle and sponge counts were correct.? The vagina was inspected and no items were left in situ. Radhika was doing well with her and her , Kenny, at bedside. PREPROCEDURE DIAGNOSIS: Intrauterine at 37w1d Cholestasis of GBS positive RH positive POSTPROCEDURE DIAGNOSIS: Intrauterine at 37w1d, delivered Same as preprocedure Baby 1: Infant gender: Male Presentation: vertex Position: Left Occiput Anterior Placenta delivery description: Spontaneous Cord Vessel Description: 3 Vessels and Nuchal Cord (reduced after delivery) score (1 min): 9 score (5 min): 9 weight: 6 lb 5.095 oz Plan for aftercare: Routine care
[2023-04-09 11:19] VITALS: TEMP 36.4
[2023-04-09] MEDS: METHYLERGONOVINE 0.2 MG TABLET PO (11:19)
[2023-04-09] MEDS: IBUPROFEN 600 MG TABLET PO (11:19)
[2023-04-09] MEDS: DERMOPLAST SPRAY 20% 60 ML 1 SPRAY TOP (12:00)
[2023-04-09] MEDS: diphenhydrAMINE 25 MG TABLET PO (16:15)
[2023-04-10] MEDS: IBUPROFEN 600 MG TABLET PO ×3 (00:53→12:58)
[2023-04-10] MEDS: LANOLIN OINT 7 GM 1 APPLIC TOP (06:42)
[2023-04-10 07:15] LABS: Add Manual Diff / Slide Review NO; Basophils Absolute Auto 0 /uL (0-100); Basophils Percent Auto 0.4 % (0-2); Eosinophils Absolute Auto 100 /uL (0-450); Hematocrit 33.6 % (36-46); Hemoglobin 11.3 g/dL (12.0-16.0); Lymphocytes Absolute Auto 3400 /uL (1100-4500); Lymphocytes Percent Auto 30.2 % (25-40); Mean Corpuscular HGB Conc 33.5 % (30-36); Mean Corpuscular Hemoglobin 30.1 PG (26-34); Mean Corpuscular Volume 89.8 fL (80-100); Monocytes Absolute Auto 500 /uL (0-900); Monocytes Percent Auto 4.5 % (3-14); Neutrophils Absolute Auto 7200 /uL (1500-7000); Neutrophils Percent Auto 63.9 % (50-75); Platelet Count 250 X10^3/uL (150-400); Red Blood Cell Count 3.74 X10^6/uL (4.0-5.2); White Blood Cell Count 11.2 X10^3/uL (4.5-11.0)
[2023-04-10 07:19] LABS: Alanine Aminotransferase 35 IU/L (<35); Albumin 3.2 g/dL (3.5-5.0); Alkaline Phosphatase 193 U/L (38-126); Aspartate Aminotransferase 38 IU/L (14-36); BUN Creatinine Ratio 15.8 (6-22); Bilirubin Total 0.4 mg/dL (0.2-1.3); Blood Urea Nitrogen 9 mg/dL (7-17); Calcium 8.3 mg/dL (8.4-10.2); Carbon Dioxide 23 mmol/L (22-32); Chloride 104 mmol/L (98-107); Estimated Glomerular Filt Rate > 60 mL/min (>60); Globulin 3.3 g/dL (1.7-4.1); Glucose 86 mg/dL (70-100); HEMOLYSIS < 15 (0-50); Potassium 4.2 mmol/L (3.4-5.1); Sodium 134 mmol/L (137-145); Total Protein 6.5 g/dL (6.3-8.2)
--- NOTE | 2023-04-10 09:04 | PM.OBDS.1 ---
Discharge Providers Provider Date of admission: 04/07/23 19:46 Discharge Date: 04/10/23 Primary care physician: Belén Love MD Consults: 04/10/23 10:38 Consult to Director Of Graduate Admissions Routine Comment: Discharge provider: Belén Love MD Summary Hospital Course Date Patient Seen: 04/10/23 Diagnoses: Intrauterine at 37w1d Cholestasis of GBS positive RH positive Hospital Course: The pt presented for IOL for cholestasis of . She received cervidil for induction, followed by a romero catheter. She was then initiated on pitocin. AROM was performed with clear fluid present. She progressed to complete and had a of a viable baby girl without complications. , there were no complications. At the time of discharge she was voiding, ambulating, and passing flatus without difficulty. Her lochia was decreasing appropriately. Her pain was well controlled. She was with good latch. She will f/u in 6 weeks for check. Peripartum Data Infant Delivery Method: Natural Vaginal Laceration Description: Perineal - 1st Degree Episiotomy description: None Procedures: Spontaneous vaginal delivery complications: none [place] 1: Gender: Male Disposition of : home Discharge Diagnosis (1) Cholestasis during in third trimester: Status: Acute (2) Spontaneous vaginal delivery: Status: Acute Status at Discharge Cognitive/behavioral status at discharge: oriented Functional status at discharge: independent ambulation Overall status at discharge: patient is progressing back to baseline Time Spent with Patient Time attestation: Total time spent providing and/or coordinating discharge services: Objective Labs 04/10/23 06:55 04/10/23 06:55 Labs: Laboratory Results - last 24 hr 04/10/23 04/10/23 06:55 06:55 WBC 11.2 H RBC 3.74 L Hgb 11.3 L Hct 33.6 L MCV 89.8 MCH 30.1 MCHC 33.5 RDW 15.0 H Plt Count 250 Neut % (Auto) 63.9 Lymph % (Auto) 30.2 [place] % (Auto) 4.5 Eos % (Auto) 1.0 L Baso % (Auto) 0.4 Neut # (Auto) 7200 H Lymph # (Auto) 3400 [place] # (Auto) 500 Eos # (Auto) 100 Baso # (Auto) 0 Sodium 134 L Potassium 4.2 Chloride 104 Carbon Dioxide 23 BUN 9 Creatinine 0.57 Estimated GFR > 60 BUN/Creatinine Ratio 15.8 Glucose 86 Calcium 8.3 L Total Bilirubin 0.4 AST 38 H ALT 35 H Alkaline Phosphatase 193 H Total Protein 6.5 Albumin 3.2 L Globulin 3.3 Albumin/Globulin Ratio 1.0 Exam Narrative Exam Narrative: Gen: NAD, sitting comfortably in bed, appears well CV: RRR, no murmurs Resp: clear to auscultation bilaterally Abd: soft, appropriately tender, fundus firm and below the umbilicus, nondistended Ext: no edema Discharge Plan Discharge Plan Patient Disposition: Home Discharge orders & Medications Prescriptions: New acetaminophen 325 mg Tablet 650 mg PO Q6HR PRN (Reason: Pain, Mild (1-3)) Qty: 30 0RF docusate sodium 100 mg Capsule 100 mg PO DAILY Qty: 30 0RF ibuprofen 600 mg Tablet 600 mg PO Q6HR PRN (Reason: Pain, Mild (1-3)) Qty: 30 0RF Continued prenat.vits,hannah,[id number] Tablet 1 tab PO DAILY Qty: 30 2RF clobetasol 0.05 % ointment 1 applic topical DAILY Benadryl 25 mg PO BEDTIME PRN (Reason: Itching) halobetasol propionate 0.05 % ointment 1 applic topical DAILY Discontinued valacyclovir 500 mg tablet 500 mg PO BID Qty: 60 2RF ursodiol 300 mg capsule 300 mg PO TID Qty: 90 3RF Follow up/Referrals: Belén Love MD [Primary Care Provider] - 6 Weeks Diet/Activity/Treatments Diet: Diet as Tolerated and Regular Skin/Wound/Dressing Care Report to your healthcare provider any signs of infection, such as:: chills, fever Visit Report/Discharge Packet Instructions: DI for Labor and Delivery, Vaginal Stand Alone Forms: Patient Portal/API, Stroke Signs & Symptoms Discharge Data Primary Care Provider: Belén Love
[2023-04-10] MEDS: DOCUSATE 100 MG CAPSULE PO (09:42)
[2023-04-10] MEDS: PRENATAL VIT,CALC/IRON/FOLIC 1 TABLET 1 TAB PO (09:42)
[2023-04-10 12:05] VITALS: BP 110/71; PULSE 58; RESP 16; TEMP 35.9
== END 2023-04-10 14:24 | disposition home or self-care (01) | DRG 807 ==
PROVIDERS: Admitting Provider Family Medicine; PCP Family Medicine; Referring Provider Family Medicine; Visit Provider Family Medicine
DX: O26.62 Liver and biliary tract disorders in childbirth (principal); Z37.0 Single live birth; Z3A.37 37 weeks gestation of pregnancy; O70.0 First degree perineal laceration during delivery; O99.824 Streptococcus B carrier state complicating childbirth
CPT/HCPCS: 36415; 59050; 59200; 59400; 80053; 85025; 86850; 86900; 86901; G0379; J0290; J2405; J2590

== ENCOUNTER → 2023-04-28 07:36 | Outpatient (CLI) | payer OTHER, SELFPAY | PROVIDERS: PCP Family Medicine; Referring Provider Family Medicine; Visit Provider Family Medicine | DX: O26.613 Liver and biliary tract disorders in pregnancy, third trimester (principal); K83.1 Obstruction of bile duct; Z13.0 Encounter for screening for diseases of the blood and blood-forming organs and certain disorders involving the immune mechanism; O92.70 Unspecified disorders of lactation; E61.1 Iron deficiency | CPT/HCPCS: 82728; 84146; 84439; 84443; 84481; 85025 ==